=== PATIENT | female | born 1940 | race African-American/Black ===

== ENCOUNTER 2016-08-28 09:26 | Observation (INO) | payer MEDICARE, MEDICAID ==
[~2016-08-28] VITALS: Ht 157.5 cm; Wt 124.9 kg
[~2016-08-28 09:26] MED LIST: AMIT25TA PO; ASPI81TA2 PO; ASPI81TA9 PO; AZIT250T PO; CALC0.25 PO; CEPH-264 PO; Cefpodoxime Proxetil PO; ERGO500012 PO; ESOM40CA PO; FERR-26 PO; FERR325T20 PO; FURO40TA4 PO; FURO80TA3 PO; FURO80TA72 PO; GABA-585 PO; INSU100C SQ; INSU100I13 SQ; INSU100I17 SQ; INSU100V8 SQ; LOSA100T6 PO; MAGN400T22 PO; METO2.5T PO; METO25TA4 PO; METO50TA2 PO; OMEP40CA5 PO; OXYB5TAB33 PO; POTA10CA PO; POTA20TA12 PO; POTA20TA4 PO; POTA20TA82 PO; SIMV10TA3 PO; SOLI5TAB PO
--- NOTE | 2016-08-28 09:40 | PHYS DOC ---
Past Medical History Past Medical History: Asthma, CHF, COPD, Diabetes-Type II, GERD, Hypertension, Other Additional Past Medical Histor: RENAL FAILURE, obesity Past Surgical History: Cholecystectomy, Hysterectomy, Other Additional Past Surgical Histo: EYE,Left rotator cuff Alcohol Use: None Drug Use: None Adult General Chief Complaint Chief Complaint: UPPER EXTREMITY PAIN HPI HPI Patient is a 76 year old female who presents with left arm pain. The patient her left arm started hurting approximately 3 days ago she states nothing makes it better or worse. She denies any chest pain or shortness of breath. According to family she has been feeling weaker over the last several days with lower extremity edema is getting worse. Family is also states that her wounds on her buttocks is now bleeding. The [id number] been putting Desitin cream on it and this morning stated they noted some blood on her sheets when the home health nurse came over. Review of Systems Review of Systems Constitutional: Denies fever or chills [] Eyes: Denies change in visual acuity, redness, or eye pain [] HENT: Denies nasal congestion or sore throat [] Respiratory: Denies cough or shortness of breath [] Cardiovascular: No additional information not addressed in HPI [] GI: Denies abdominal pain, nausea, vomiting, bloody stools or diarrhea [] : Denies dysuria or hematuria [] Musculoskeletal: Denies back pain, positive for left arm pain Integument: Denies rash or skin lesions [] Neurologic: Denies headache, focal weakness or sensory changes [] Endocrine: Denies polyuria or polydipsia [] Allergies Allergies Allergies Coded Allergies Type Severity Reaction Last Updated Verified Iodinated Contrast Media - Oral and Allergy Severe 08/28/16 Yes lisinopril Allergy Severe lip and throat swelling 08/28/16 Yes I S O L A T I O N *CONTACT* Allergy Unknown 09/20/15 Yes Physical Exam Physical Exam Constitutional: Well developed, morbidly obese, well nourished, no acute distress, non-toxic appearance. [] HENT: Normocephalic, atraumatic, bilateral external ears normal, oropharynx moist, no oral exudates, nose normal. [] Eyes: PERRLA, EOMI, conjunctiva normal, no discharge. [] Neck: Normal range of motion, no tenderness, supple, no stridor. [] Cardiovascular:Heart rate regular rhythm, no murmur [] Lungs & Thorax: Bilateral breath sounds clear to auscultation [] Abdomen/ buttocks: Bowel sounds normal, soft, no tenderness, no masses, no pulsatile masses. Desitin in place without any obvious signs of bleeding throughout the gluteal area.[] Skin: Warm, dry, no erythema, no rash. [] Back: No tenderness, no CVA tenderness. [] Extremities: Generalized tender palpation throughout the left arm, with mild swelling, radial pulses 2+ on the left, no cyanosis, no clubbing, ROM intact. Psychologic: Affect normal, judgement normal, mood normal. [] Current Patient Data Vital Signs Vital Signs Date Time Temp Pulse Resp B/P Pulse Ox O2 Delivery O2 Flow Rate FiO2 08/28/16 09:52 99.3 88 20 152/59 96 Room Air 99.3 Lab Values Laboratory Tests Test 08/28/16 10:10 08/28/16 11:05 White Blood Count 9.7x10^3/uL (4.0-11.0) Red Blood Count 3.71x10^6/uL (3.50-5.40) Hemoglobin 11.3g/dL (12.0-15.5) L Hematocrit 34.2% (36.0-47.0) L Mean Corpuscular Volume 92fL (79-100) Mean Corpuscular Hemoglobin 30pg (25-35) Mean Corpuscular Hemoglobin Concent 33g/dL (31-37) Red Cell Distribution Width 15.7% (11.5-14.5) H Platelet Count 187x10^3/uL (140-400) Neutrophils (%) (Auto) 74% (31-73) H Lymphocytes (%) (Auto) 14% (24-48) L Monocytes (%) (Auto) 9% (0-9) Eosinophils (%) (Auto) 2% (0-3) Basophils (%) (Auto) 1% (0-3) Neutrophils # (Auto) 7.2x10^3uL (1.8-7.7) Lymphocytes # (Auto) 1.4x10^3/uL (1.0-4.8) Monocytes # (Auto) 0.9x10^3/uL (0.0-1.1) Eosinophils # (Auto) 0.2x10^3/uL (0.0-0.7) Basophils # (Auto) 0.1x10^3/uL (0.0-0.2) Prothrombin Time 13.7SEC (11.7-14.0) Prothrombin Time INR 1.1 (0.8-1.1) Sodium Level 144mmol/L (136-145) Potassium Level 4.2mmol/L (3.5-5.1) Chloride Level 104mmol/L (98-107) Carbon Dioxide Level 31mmol/L (21-32) Anion Gap 9 (6-14) Blood Urea Nitrogen 40mg/dL (7-20) H Creatinine 2.0mg/dL (0.6-1.0) H Estimated GFR (Cockcroft-Gault) 29.2 Glucose Level 195mg/dL (70-99) H Calcium Level 10.2mg/dL (8.5-10.1) H Magnesium Level 1.9mg/dL (1.8-2.4) Total Bilirubin 0.4mg/dL (0.2-1.0) Direct Bilirubin 0.1mg/dL (0.0-0.2) Aspartate Amino Transferase (AST) 14U/L (15-37) L Alanine Aminotransferase (ALT) 22U/L (14-59) Alkaline Phosphatase 83U/L (46-116) Creatine Kinase 107U/L (26-192) Creatine Kinase MB (Mass) 0.6ng/mL (0.0-3.6) Creatine Kinase MB Relative Index 0.6% (0-4) Troponin I Quantitative < 0.017ng/mL (0.000-0.055) AY-Sey-T-Type Natriuretic Peptide 3723pg/mL (0-449) H Total Protein 7.5g/dL (6.4-8.2) Albumin 3.2g/dL (3.4-5.0) L Thyroid Stimulating Hormone (TSH) 3.175uIU/mL (0.358-3.74) Laboratory Tests 08/28/16 10:10 Laboratory Tests 08/28/16 11:05 EKG EKG EKG shows sinus rhythm with rate of 85 bpm, left axis deviation, no ST elevations appreciated, T-wave inversions in the inferior leads, as interpreted by me. Radiology/Procedures Radiology/Procedures [id number] [place] [address] IMAGING REPORT Signed PATIENT: RUDDY COTE ACCOUNT: [id number] : 1940 LOCATION: ER AGE: 76 SEX: F EXAM STATUS: REG ER ORD. PHYSICIAN: JOSEFINA SANDOVAL MD REASON: chf PROCEDURE: PORTABLE CHEST 1V Portable chest, 08/28/2016: History: Congestive heart failure Comparison is made to a study from 09/21/2015. The heart is mildly enlarged. There is calcific plaquing of the aorta. The pulmonary vascularity is normal. There is mild fissural thickening, scarring or chronic atelectasis in the right parahilar region. No acute infiltrates are seen. There is no evidence of pleural fluid. IMPRESSION: 1. Mild cardiomegaly and aortic atherosclerosis. 2. No acute abnormality is detected. DICTATED and SIGNED BY: RACHAEL VOGT MD DATE: 08/28/16 1153 CC: JOSEFINA SANDOVAL MD; MOLLY FERREIRA MD ~ [facility] [address] [place], [place] [id number] IMAGING REPORT Signed PATIENT: RUDDY COTE ACCOUNT: [id number] : 1940 LOCATION: ER AGE: 76 SEX: F EXAM STATUS: REG ER ORD. PHYSICIAN: JOSEFINA SANDOVAL MD REASON: swelling of left arm PROCEDURE: VENOUS UPPER EXTREMITY LEFT Left upper extremity venous ultrasound, 08/28/2016: History: Left arm swelling Duplex evaluation of the major veins in the left upper extremity was performed including grayscale, color-flow and spectral Doppler analysis. The left internal jugular, subclavian, axillary, brachial, cephalic and basilic veins are all patent. Patent radial and ulnar veins are evident in the forearm. Incidental note is made of a small fluid collection in the soft tissues along the lateral aspect of the left elbow. It measures approximately 2.3 cm. This may be a bursal fluid collection, old hematoma or seroma. Infection cannot be excluded. IMPRESSION: There is no sonographic evidence of deep vein thrombosis in the left upper extremity. DICTATED and SIGNED BY: RACHAEL VOGT MD DATE: 08/28/16 1218 CC: JOSEFINA SANDOVAL MD; MOLLY FERREIRA MD ~ Impressions: Left arm pain Generalized weakness Worsening lower ext edema Course & Med Decision Making Course & Med Decision Making Pertinent Labs and Imaging studies reviewed. (See chart for details) Ultrasound of the left upper extremity did not show any signs of blood clots. Labs do show a slightly worsening BNP, chest x-ray is nonacute. Patient will be admitted for weakness. Patient's in stable condition at this time agreeable plan. Spoke with Dr. Fallon is agreeable to admitting the patient had did already do admission orders underneath Dr. Ferreira, Hafsa ordered PT evaluation in addition to wound care evaluation. Patient's in stable condition at this time with cardiology consultation also being placed with Dr Busby. [place] Disclaimer Dragon Disclaimer This electronic medical record was generated, in whole or in part, using a voice recognition dictation system. Departure Departure Impression: Primary Impression: Weakness Disposition: ADMITTED INPATIENT Admitting Physician: Molly Ferreira Condition: STABLE Referrals: MOLLY FERREIRA MD (PCP) JOSEFINA SANDOVAL MD Aug 28, 2016 09:40
[2016-08-28 10:39] LABS: BASO # 0.1 x10^3/uL (0.0-0.2); BASO % 1 % (0-3); EOS % 2 % (0-3); HEMATOCRIT 34.2 % (36.0-47.0); HEMOGLOBIN 11.3 g/dL (12.0-15.5); LYMPH # 1.4 x10^3/uL (1.0-4.8); LYMPH % 14 % (24-48); MEAN CORPUSCULAR HEMOGLOBIN 30 pg (25-35); MEAN CORPUSCULAR HGB CONC 33 g/dL (31-37); MEAN CORPUSCULAR VOLUME 92 fL (79-100); MONO % 9 % (0-9); NEUT % 74 % (31-73); PLATELET COUNT 187 x10^3/uL (140-400); RED BLOOD COUNT 3.71 x10^6/uL (3.50-5.40); RED CELL DISTRIBUTION WIDTH 15.7 % (11.5-14.5); WHITE BLOOD COUNT 9.7 x10^3/uL (4.0-11.0)
[2016-08-28 11:31] LABS: INR 1.1 (0.8-1.1); PROTHROMBIN TIME PATIENT 13.7 SEC (11.7-14.0)
[2016-08-28 11:32] LABS: CALCIUM 10.2 mg/dL (8.5-10.1); GFR 29.2; POTASSIUM 4.2 mmol/L (3.5-5.1)
[2016-08-28 11:39] LABS: ALBUMIN 3.2 g/dL (3.4-5.0); DIRECT BILIRUBIN 0.1 mg/dL (0.0-0.2); MAGNESIUM 1.9 mg/dL (1.8-2.4); TOTAL BILIRUBIN 0.4 mg/dL (0.2-1.0); TOTAL PROTEIN 7.5 g/dL (6.4-8.2)
[2016-08-28 11:47] LABS: CKMB INDEX 0.6 % (0-4); CKMB MASS 0.6 ng/mL (0.0-3.6)
--- NOTE | 2016-08-28 11:57 | RAD ---
Portable chest, 08/28/2016: History: Congestive heart failure Comparison is made to a study from 09/21/2015. The heart is mildly enlarged. There is calcific plaquing of the aorta. The pulmonary vascularity is normal. There is mild fissural thickening, scarring or chronic atelectasis in the right parahilar region. No acute infiltrates are seen. There is no evidence of pleural fluid. IMPRESSION: 1. Mild cardiomegaly and aortic atherosclerosis. 2. No acute abnormality is detected.
--- NOTE | 2016-08-28 12:23 | RAD ---
Left upper extremity venous ultrasound, 08/28/2016: History: Left arm swelling Duplex evaluation of the major veins in the left upper extremity was performed including grayscale, color-flow and spectral Doppler analysis. The left internal jugular, subclavian, axillary, brachial, cephalic and basilic veins are all patent. Patent radial and ulnar veins are evident in the forearm. Incidental note is made of a small fluid collection in the soft tissues along the lateral aspect of the left elbow. It measures approximately 2.3 cm. This may be a bursal fluid collection, old hematoma or seroma. Infection cannot be excluded. IMPRESSION: There is no sonographic evidence of deep vein thrombosis in the left upper extremity.
--- NOTE | 2016-08-28 13:45 | EKG ---
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
[2016-08-28 16:30] VITALS: BP 127/89
[2016-08-28 16:52] VITALS: BP 129/82
[2016-08-28 16:58] LABS: BILIRUBIN,URINE NEGATIVE (NEG); GLUCOSE,URINE NEGATIVE (NEG); NITRITE,URINE NEGATIVE (NEG)
[2016-08-28 17:07] LABS: BACTERIA,URINE MANY /HPF (0-FEW); PROTEIN,URINE NEGATIVE (NEG-TRACE)
[2016-08-28 17:08] LABS: SQUAMOUS EPITHELIAL CELL,UR OCC /LPF
[2016-08-28] MEDS ORDERED: INSU100C4 SQ (17:39)
[2016-08-28] MEDS ORDERED: POTA20TA4 PO (17:39)
[2016-08-28] MEDS ORDERED: METO25TA4 PO (17:39)
[2016-08-28] MEDS ORDERED: INSU100I13 SQ (17:39)
[2016-08-28] MEDS ORDERED: DEXTROSE 50% 25 GM / 50ML DISP.SYRIN. IV PRN (18:15)
[2016-08-28] MEDS: HYDROCODONE/APAP 5/325MG TABLET. PO PRN (18:43)
[2016-08-28] MEDS: LIDOCAINE (700MG/PATCH) PATCH. TD SCH (18:45)
[2016-08-28] MEDS: INSULIN ASPART 300 UNITS/3 ML INSULN.PEN SQ SCH (18:49)
[2016-08-28 19:00] VITALS: BP 117/61
[2016-08-28 19:29] LABS: C-REACTIVE PROTEIN 48.4 mg/L (0-3.3); URIC ACID 7.8 mg/dL (2.6-6.0)
--- NOTE | 2016-08-28 20:40 | PDOC2 ---
CONSULT Date of Consult Date of Consult DATE: 08/28/16 TIME: 20:28 Reason for Consult Reason for Consult: Left arm pain Referring Physician Referring Physician: Dr. Ponce Identification/Chief Complaint Chief Complaint Left arm pain History of Present Illness Reason for Visit: This patient is a pleasant 76-year-old lady that I have seen in the past. She has a known history of diabetes, hypertension, CHF, renal insufficiency and obesity. The patient is not very active. She has developed at home some ulcerations on her backside that the family has been treated with creams. For about 3 days she has been having left arm pain that has been getting worse and by today he was so severe that she could not stand any 1 to touch the arm between the shoulder to the elbow especially on the medial aspect. The patient was brought to the emergency room where she was seen and evaluated and he was decided to admit her for further workup and treatment. I was asked to see the patient in case that this was cardiac related. At the time that I saw the patient she denies having any chest pains or any dyspnea. She denies having any palpitations. Patient complains that she has been having leg edema. This is chronic for her. Past Medical History Cardiovascular: AFIB, CHF, HTN Pulmonary: Asthma, COPD GI: GERD Renal/: Chronic renal failure Endocrine: Diabetes Past Surgical History Past Surgical History: Cholecystectomy, Hysterectomy Family History Family History: Diabetes, Hypertension Current Problem List Problem List Problems Medical Problems: (1) CHF (congestive heart failure) Status: Acute (2) Weakness Status: Acute Current Medications Current Medications Current Medications Aspirin (Ecotrin) 81 mg DAILY PO ; Start 08/29/16 at 09:00 Ferrous Sulfate (Feosol) 325 mg DAILY PO ; Start 08/29/16 at 09:00 Gabapentin (Neurontin) 100 mg HS PO ; Start 08/28/16 at 21:00 Magnesium Oxide (Magnesium Oxide) 400 mg DAILY PO ; Start 08/29/16 at 09:00 Pantoprazole Sodium (Protonix) 40 mg DAILYAC PO ; Start 08/29/16 at 07:30 Oxybutynin Chloride (Ditropan) 5 mg BID PO ; Start 08/28/16 at 21:00 Lidocaine (Lidoderm) 1 patch DAILY TD Last administered on 08/28/16t 18:45; Start 08/28/16 at 19:00 Acetaminophen/ Hydrocodone Bitart (Lortab 5/325) 1 tab PRN Q4HRS PRN PO PAIN Last administered on 08/28/16t 18:43; Start 08/28/16 at 18:15 Insulin Aspart (Novolog) 0-5 UNITS TIDWMEALS SQ ; Start 08/29/16 at 08:00; Stop 08/29/16 at 08:00; Status DC Dextrose 12.5 gm PRN Q15MIN PRN IV SEE COMMENTS; Start 08/28/16 at 18:15 Insulin Aspart (Novolog) 0-5 UNITS TIDWMEALS SQ Last administered on 08/28/16 18:49; Start 08/28/16 at 19:00 Furosemide (Lasix) 40 mg BID92 PO ; Start 08/29/16 at 09:00 Metoprolol Tartrate (Lopressor) 25 mg BID PO ; Start 08/28/16 at 21:00 Losartan Potassium (Cozaar) 100 mg DAILY PO ; Start 08/29/16 at 09:00 Potassium Chloride (Klor-Con) 20 meq DAILY PO ; Start 08/29/16 at 09:00 Active Scripts Active Mag-Oxide (Magnesium Oxide) 400 Mg Tablet 400 Mg PO DAILY Furosemide 40 Mg Tablet 40 Mg PO BID92 Keflex (Cephalexin) 500 Mg Capsule 1 Cap PO BID Lantus Solostar (Insulin Glargine,Hum.rec.anlog) 100 Unit/1 Ml Insuln.pen 20 Unit SQ QHS Reported Novolog (Insulin Aspart) 100 Unit/1 Ml Cartridge 10 Unit SQ TIDWMEALS Lantus Solostar (Insulin Glargine,Hum.rec.anlog) 100 Unit/1 Ml Insuln.pen 30 Unit SQ DAILY08 Metoprolol Tartrate 25 Mg Tablet 1 Tab PO BID Klor-Con M20 (Potassium Chloride) 20 Meq Tab.er.prt 1 Tab PO DAILY Vitamin D2 (Ergocalciferol (Vitamin D2)) 50,000 Unit Capsule 1 Cap PO WEEKLY Vesicare (Solifenacin Succinate) 5 Mg Tablet 1 Tab PO DAILY Gabapentin 100 Mg Capsule 100 Mg PO HS Simvastatin 10 Mg Tablet 10 Mg PO HS Metoprolol Tartrate 50 Mg Tablet 1 Tab PO BID Aspirin Ec (Aspirin) 81 Mg Tablet.dr 1 Tab PO DAILY Nexium Capsule (Esomeprazole Magnesium) 40 Mg Capsule.dr 40 Mg PO DAILY Amitriptyline Hcl 25 Mg Tablet 25 Mg PO HS Ferrous Sulfate 325 Mg Tablet 325 Mg PO DAILY Losartan Potassium 100 Mg Tablet 100 Mg PO DAILY Allergies Allergies: Coded Allergies: Iodinated Contrast Media - Oral and (Verified Allergy, Severe, 08/28/16) lisinopril (Verified Allergy, Severe, lip and throat swelling, 08/28/16) I S O L A T I O N *CONTACT* (Verified Allergy, Unknown, 09/20/15) mrsa + Physical Exam Physical Exam The patient was in mild distress at the time that I examined her and she was complaining of severe pain to the arm. H EENT pupils are reactive. Oral mucosa is dry. Neck is supple no JVD no tenderness. Lungs no Rales, no wheezing. Heart regular rate and rhythm S1-S2 no S3 no S4. Abdomen protuberant, soft bowel sounds are present. Extremities there is chronic stasis changes present in both legs. The left arm is very tender and I could not examine the arm due to the pain in the area in between the shoulder to just above the elbow especially on the medial aspect of the arm. The radial pulse was present and there is 1+ edema of the fingers. At this time the examination of the buttocks and the perineal area was deferred. Vitals VITALS Vital Signs Date Time Temp Pulse Resp B/P Pulse Ox O2 Delivery O2 Flow Rate FiO2 08/28/16 16:52 98.4 87 20 129/82 99 Room Air 98.4 Labs Labs Laboratory Tests Test 08/28/16 10:10 08/28/16 11:05 08/28/16 16:35 08/28/16 17:20 White Blood Count 9.7x10^3/uL (4.0-11.0) Red Blood Count 3.71x10^6/uL (3.50-5.40) Hemoglobin 11.3g/dL (12.0-15.5) Hematocrit 34.2% (36.0-47.0) Mean Corpuscular Volume 92fL (79-100) Mean Corpuscular Hemoglobin 30pg (25-35) Mean Corpuscular Hemoglobin Concent 33g/dL (31-37) Red Cell Distribution Width 15.7% (11.5-14.5) Platelet Count 187x10^3/uL (140-400) Neutrophils (%) (Auto) 74% (31-73) Lymphocytes (%) (Auto) 14% (24-48) Monocytes (%) (Auto) 9% (0-9) Eosinophils (%) (Auto) 2% (0-3) Basophils (%) (Auto) 1% (0-3) Neutrophils # (Auto) 7.2x10^3uL (1.8-7.7) Lymphocytes # (Auto) 1.4x10^3/uL (1.0-4.8) Monocytes # (Auto) 0.9x10^3/uL (0.0-1.1) Eosinophils # (Auto) 0.2x10^3/uL (0.0-0.7) Basophils # (Auto) 0.1x10^3/uL (0.0-0.2) Prothrombin Time 13.7SEC (11.7-14.0) Prothromb Time International Ratio 1.1 (0.8-1.1) Sodium Level 144mmol/L (136-145) Potassium Level 4.2mmol/L (3.5-5.1) Chloride Level 104mmol/L (98-107) Carbon Dioxide Level 31mmol/L (21-32) Anion Gap 9 (6-14) Blood Urea Nitrogen 40mg/dL (7-20) Creatinine 2.0mg/dL (0.6-1.0) Estimated GFR (Cockcroft-Gault) 29.2 Glucose Level 195mg/dL (70-99) Calcium Level 10.2mg/dL (8.5-10.1) Magnesium Level 1.9mg/dL (1.8-2.4) Total Bilirubin 0.4mg/dL (0.2-1.0) Direct Bilirubin 0.1mg/dL (0.0-0.2) Aspartate Amino Transf (AST/SGOT) 14U/L (15-37) Alanine Aminotransferase (ALT/SGPT) 22U/L (14-59) Alkaline Phosphatase 83U/L (46-116) Creatine Kinase 107U/L (26-192) Creatine Kinase MB (Mass) 0.6ng/mL (0.0-3.6) Creatine Kinase MB Relative Index 0.6% (0-4) Troponin I Quantitative < 0.017ng/mL (0.000-0.055) QR-Gcd-F-Type Natriuretic Peptide 3723pg/mL (0-449) Total Protein 7.5g/dL (6.4-8.2) Albumin 3.2g/dL (3.4-5.0) Thyroid Stimulating Hormone (TSH) 3.175uIU/mL (0.358-3.74) Urine Collection Type Unknown Urine Color Yellow Urine Clarity Clear Urine pH 7.0 Urine Specific [place] 1.010 Urine Protein Negativemg/dL (NEG-TRACE) Urine Glucose (UA) Negativemg/dL (NEG) Urine Ketones (Stick) Negativemg/dL (NEG) Urine Blood Moderate (NEG) Urine Nitrite Negative (NEG) Urine Bilirubin Negative (NEG) Urine Urobilinogen Dipstick 1.0mg/dL (0.2 mg/dL) Urine Leukocyte Esterase Trace (NEG) Urine RBC 6-10/HPF (0-2) Urine WBC 1-4/HPF (0-4) Urine Squamous Epithelial Cells Occ/LPF Urine Bacteria Many/HPF (0-FEW) Glucose (Fingerstick) 173mg/dL (70-99) Test 08/28/16 18:50 Erythrocyte Sedimentation Rate 86 (0-25) Uric Acid 7.8mg/dL (2.6-6.0) C-Reactive Protein, Quantitative 48.4mg/L (0-3.3) Laboratory Tests Test 08/28/16 10:10 08/28/16 11:05 08/28/16 16:35 08/28/16 17:20 White Blood Count 9.7x10^3/uL (4.0-11.0) Red Blood Count 3.71x10^6/uL (3.50-5.40) Hemoglobin 11.3g/dL (12.0-15.5) Hematocrit 34.2% (36.0-47.0) Mean Corpuscular Volume 92fL (79-100) Mean Corpuscular Hemoglobin 30pg (25-35) Mean Corpuscular Hemoglobin Concent 33g/dL (31-37) Red Cell Distribution Width 15.7% (11.5-14.5) Platelet Count 187x10^3/uL (140-400) Neutrophils (%) (Auto) 74% (31-73) Lymphocytes (%) (Auto) 14% (24-48) Monocytes (%) (Auto) 9% (0-9) Eosinophils (%) (Auto) 2% (0-3) Basophils (%) (Auto) 1% (0-3) Neutrophils # (Auto) 7.2x10^3uL (1.8-7.7) Lymphocytes # (Auto) 1.4x10^3/uL (1.0-4.8) Monocytes # (Auto) 0.9x10^3/uL (0.0-1.1) Eosinophils # (Auto) 0.2x10^3/uL (0.0-0.7) Basophils # (Auto) 0.1x10^3/uL (0.0-0.2) Prothrombin Time 13.7SEC (11.7-14.0) Prothromb Time International Ratio 1.1 (0.8-1.1) Sodium Level 144mmol/L (136-145) Potassium Level 4.2mmol/L (3.5-5.1) Chloride Level 104mmol/L (98-107) Carbon Dioxide Level 31mmol/L (21-32) Anion Gap 9 (6-14) Blood Urea Nitrogen 40mg/dL (7-20) Creatinine 2.0mg/dL (0.6-1.0) Estimated GFR (Cockcroft-Gault) 29.2 Glucose Level 195mg/dL (70-99) Calcium Level 10.2mg/dL (8.5-10.1) Magnesium Level 1.9mg/dL (1.8-2.4) Total Bilirubin 0.4mg/dL (0.2-1.0) Direct Bilirubin 0.1mg/dL (0.0-0.2) Aspartate Amino Transf (AST/SGOT) 14U/L (15-37) Alanine Aminotransferase (ALT/SGPT) 22U/L (14-59) Alkaline Phosphatase 83U/L (46-116) Creatine Kinase 107U/L (26-192) Creatine Kinase MB (Mass) 0.6ng/mL (0.0-3.6) Creatine Kinase MB Relative Index 0.6% (0-4) Troponin I Quantitative < 0.017ng/mL (0.000-0.055) QL-Tpc-K-Type Natriuretic Peptide 3723pg/mL (0-449) Total Protein 7.5g/dL (6.4-8.2) Albumin 3.2g/dL (3.4-5.0) Thyroid Stimulating Hormone (TSH) 3.175uIU/mL (0.358-3.74) Urine Collection Type Unknown Urine Color Yellow Urine Clarity Clear Urine pH 7.0 Urine Specific [place] 1.010 Urine Protein Negativemg/dL (NEG-TRACE) Urine Glucose (UA) Negativemg/dL (NEG) Urine Ketones (Stick) Negativemg/dL (NEG) Urine Blood Moderate (NEG) Urine Nitrite Negative (NEG) Urine Bilirubin Negative (NEG) Urine Urobilinogen Dipstick 1.0mg/dL (0.2 mg/dL) Urine Leukocyte Esterase Trace (NEG) Urine RBC 6-10/HPF (0-2) Urine WBC 1-4/HPF (0-4) Urine Squamous Epithelial Cells Occ/LPF Urine Bacteria Many/HPF (0-FEW) Glucose (Fingerstick) 173mg/dL (70-99) Test 08/28/16 18:50 Erythrocyte Sedimentation Rate 86 (0-25) Uric Acid 7.8mg/dL (2.6-6.0) C-Reactive Protein, Quantitative 48.4mg/L (0-3.3) Assessment/Plan Assessment/Plan This patient comes in with severe left arm pain. The findings are not suggestive of a cardiac origin and I would suggest to consider a consult of the orthopedic service. May need to have a vascular evaluation as well. The patient's edema is related to her chronic CHF. I do not believe that her current pain is angina. I will be happy to follow the patient with you. Consider an MRI of the left upper extremity to further evaluate her since she had a negative ultrasound of the area. Thank you very much for asking me to participate in the care of this patient VITO HOWARD MD Aug 28, 2016 20:40
[2016-08-28] MEDS: GABAPENTIN 100 MG CAPSULE. PO SCH (21:07)
[2016-08-28] MEDS: OXYBUTYNIN CHLORIDE 5 MG TABLET PO SCH (21:07)
[2016-08-28] MEDS: METOPROLOL TART IMMED RELEASE 25 MG TABLET PO SCH (21:08)
[2016-08-28 23:04] VITALS: BP 123/92
[2016-08-29 03:29] VITALS: BP 117/63
[2016-08-29 04:19] LABS: BASO % 1 % (0-3); EOS % 1 % (0-3); HEMATOCRIT 32.2 % (36.0-47.0); HEMOGLOBIN 10.2 g/dL (12.0-15.5); LYMPH # 1.3 x10^3/uL (1.0-4.8); LYMPH % 16 % (24-48); MEAN CORPUSCULAR HEMOGLOBIN 30 pg (25-35); MEAN CORPUSCULAR HGB CONC 32 g/dL (31-37); MEAN CORPUSCULAR VOLUME 94 fL (79-100); MONO % 10 % (0-9); NEUT % 73 % (31-73); PLATELET COUNT 154 x10^3/uL (140-400); RED BLOOD COUNT 3.43 x10^6/uL (3.50-5.40); RED CELL DISTRIBUTION WIDTH 15.3 % (11.5-14.5); WHITE BLOOD COUNT 8.5 x10^3/uL (4.0-11.0)
[2016-08-29 04:46] LABS: ALBUMIN 2.9 g/dL (3.4-5.0); ALBUMIN/GLOBULIN RATIO 0.7 (1.0-1.7); CALCIUM 9.8 mg/dL (8.5-10.1); GFR 29.2; TOTAL BILIRUBIN 0.5 mg/dL (0.2-1.0)
[2016-08-29] MEDS: PANTOPRAZOLE 40 MG TABLET. PO SCH (06:41)
[2016-08-29 07:00] VITALS: BP 149/66
--- NOTE | 2016-08-29 07:34 | RAD ---
Portable left elbow, 3 views, 08/28/2016: History: Elbow pain No fracture or dislocation is identified. There is mild to moderate spurring at the elbow joint. There is a suggestion of a small joint effusion. IMPRESSION: 1. Degenerative change. 2. Probable small joint effusion. 3. No acute bony abnormality is detected.
[2016-08-29] MEDS ORDERED: INSULIN ASPART 300 UNITS/3 ML INSULN.PEN SQ SCH (08:00)
[2016-08-29] MEDS: INSULIN ASPART 300 UNITS/3 ML INSULN.PEN SQ SCH ×5 (08:34→17:58)
[2016-08-29] MEDS: ASPIRIN ENTERIC COATED 81 MG TABLET.DR. PO SCH (08:35)
[2016-08-29] MEDS: FUROSEMIDE 40 MG TABLET PO SCH ×2 (08:35→14:28)
[2016-08-29] MEDS: OXYBUTYNIN CHLORIDE 5 MG TABLET PO SCH ×2 (08:35→20:59)
[2016-08-29] MEDS: LOSARTAN POTASSIUM 50 MG TABLET. PO SCH (08:35)
[2016-08-29] MEDS: FERROUS SULFATE 325 MG TABLET PO SCH (08:35)
[2016-08-29] MEDS: METOPROLOL TART IMMED RELEASE 25 MG TABLET PO SCH ×2 (08:36→20:54)
[2016-08-29] MEDS: HYDROCODONE/APAP 5/325MG TABLET. PO PRN ×2 (08:37→12:47)
[2016-08-29] MEDS: MAGNESIUM OXIDE 400 MG TABLET PO SCH (08:37)
[2016-08-29] MEDS: LIDOCAINE (700MG/PATCH) PATCH. TD SCH (08:40)
[2016-08-29] MEDS: POTASSIUM CHLORIDE 20 MEQ TABLET.ER. PO SCH (08:41)
--- NOTE | 2016-08-29 09:56 | PDOC ---
PROGRESS NOTES Subjective Subjective Pt A&Ox3, cooperative. Sitting up at bedside. Denies having chest pain. States she does get SOB with exertion, but not lying still. Still complains of left arm pain. No new complaints at this time. Objective Objective Vital Signs Date Time Temp Pulse Resp B/P Pulse Ox O2 Delivery O2 Flow Rate FiO2 08/29/16 08:36 86 149/66 08/29/16 08:00 Room Air 08/29/16 07:00 98.3 20 94 98.3 Intake and Output 08/29/16 07:00 Intake Total 720 ml Output Total 600 ml Balance 120 ml Intake Oral 720 ml Output Urine Total 600 ml # Voids 4 Physical Exam Abdomen: Normal bowel sounds, Soft, No tenderness, No hepatosplenomegaly, No masses Heart: Regular rate, Normal S1, Normal S2, No murmurs, Gallops Extremities: Other (1+ edema bilat LE) General: Alert, Oriented X3, Cooperative, No acute distress Lungs: Clear to auscultation, Normal air movement Assessment Assessment Problems Medical Problems: (1) CHF (congestive heart failure) Status: Acute (2) Weakness Status: Acute Plan Plan of Care CHF Stable at this time Continue with current plan of care Comment Review of Relevant I have reviewed the following items terry (where applicable) has been applied. Labs Laboratory Tests Test 08/28/16 10:10 08/28/16 11:05 08/28/16 16:35 08/28/16 17:20 White Blood Count 9.7x10^3/uL (4.0-11.0) Red Blood Count 3.71x10^6/uL (3.50-5.40) Hemoglobin 11.3g/dL (12.0-15.5) Hematocrit 34.2% (36.0-47.0) Mean Corpuscular Volume 92fL (79-100) Mean Corpuscular Hemoglobin 30pg (25-35) Mean Corpuscular Hemoglobin Concent 33g/dL (31-37) Red Cell Distribution Width 15.7% (11.5-14.5) Platelet Count 187x10^3/uL (140-400) Neutrophils (%) (Auto) 74% (31-73) Lymphocytes (%) (Auto) 14% (24-48) Monocytes (%) (Auto) 9% (0-9) Eosinophils (%) (Auto) 2% (0-3) Basophils (%) (Auto) 1% (0-3) Neutrophils # (Auto) 7.2x10^3uL (1.8-7.7) Lymphocytes # (Auto) 1.4x10^3/uL (1.0-4.8) Monocytes # (Auto) 0.9x10^3/uL (0.0-1.1) Eosinophils # (Auto) 0.2x10^3/uL (0.0-0.7) Basophils # (Auto) 0.1x10^3/uL (0.0-0.2) Prothrombin Time 13.7SEC (11.7-14.0) Prothromb Time International Ratio 1.1 (0.8-1.1) Sodium Level 144mmol/L (136-145) Potassium Level 4.2mmol/L (3.5-5.1) Chloride Level 104mmol/L (98-107) Carbon Dioxide Level 31mmol/L (21-32) Anion Gap 9 (6-14) Blood Urea Nitrogen 40mg/dL (7-20) Creatinine 2.0mg/dL (0.6-1.0) Estimated GFR (Cockcroft-Gault) 29.2 Glucose Level 195mg/dL (70-99) Calcium Level 10.2mg/dL (8.5-10.1) Magnesium Level 1.9mg/dL (1.8-2.4) Total Bilirubin 0.4mg/dL (0.2-1.0) Direct Bilirubin 0.1mg/dL (0.0-0.2) Aspartate Amino Transf (AST/SGOT) 14U/L (15-37) Alanine Aminotransferase (ALT/SGPT) 22U/L (14-59) Alkaline Phosphatase 83U/L (46-116) Creatine Kinase 107U/L (26-192) Creatine Kinase MB (Mass) 0.6ng/mL (0.0-3.6) Creatine Kinase MB Relative Index 0.6% (0-4) Troponin I Quantitative < 0.017ng/mL (0.000-0.055) WC-Onm-V-Type Natriuretic Peptide 3723pg/mL (0-449) Total Protein 7.5g/dL (6.4-8.2) Albumin 3.2g/dL (3.4-5.0) Thyroid Stimulating Hormone (TSH) 3.175uIU/mL (0.358-3.74) Urine Collection Type Unknown Urine Color Yellow Urine Clarity Clear Urine pH 7.0 Urine Specific [place] 1.010 Urine Protein Negativemg/dL (NEG-TRACE) Urine Glucose (UA) Negativemg/dL (NEG) Urine Ketones (Stick) Negativemg/dL (NEG) Urine Blood Moderate (NEG) Urine Nitrite Negative (NEG) Urine Bilirubin Negative (NEG) Urine Urobilinogen Dipstick 1.0mg/dL (0.2 mg/dL) Urine Leukocyte Esterase Trace (NEG) Urine RBC 6-10/HPF (0-2) Urine WBC 1-4/HPF (0-4) Urine Squamous Epithelial Cells Occ/LPF Urine Bacteria Many/HPF (0-FEW) Glucose (Fingerstick) 173mg/dL (70-99) Test 08/28/16 18:50 08/28/16 20:30 08/29/16 03:20 08/29/16 08:02 Erythrocyte Sedimentation Rate 86 (0-25) Uric Acid 7.8mg/dL (2.6-6.0) C-Reactive Protein, Quantitative 48.4mg/L (0-3.3) Troponin I Quantitative 0.018ng/mL (0.000-0.055) 0.018ng/mL (0.000-0.055) White Blood Count 8.5x10^3/uL (4.0-11.0) Red Blood Count 3.43x10^6/uL (3.50-5.40) Hemoglobin 10.2g/dL (12.0-15.5) Hematocrit 32.2% (36.0-47.0) Mean Corpuscular Volume 94fL (79-100) Mean Corpuscular Hemoglobin 30pg (25-35) Mean Corpuscular Hemoglobin Concent 32g/dL (31-37) Red Cell Distribution Width 15.3% (11.5-14.5) Platelet Count 154x10^3/uL (140-400) Neutrophils (%) (Auto) 73% (31-73) Lymphocytes (%) (Auto) 16% (24-48) Monocytes (%) (Auto) 10% (0-9) Eosinophils (%) (Auto) 1% (0-3) Basophils (%) (Auto) 1% (0-3) Neutrophils # (Auto) 6.2x10^3uL (1.8-7.7) Lymphocytes # (Auto) 1.3x10^3/uL (1.0-4.8) Monocytes # (Auto) 0.8x10^3/uL (0.0-1.1) Eosinophils # (Auto) 0.1x10^3/uL (0.0-0.7) Basophils # (Auto) 0.0x10^3/uL (0.0-0.2) Sodium Level 143mmol/L (136-145) Potassium Level 4.0mmol/L (3.5-5.1) Chloride Level 104mmol/L (98-107) Carbon Dioxide Level 32mmol/L (21-32) Anion Gap 7 (6-14) Blood Urea Nitrogen 39mg/dL (7-20) Creatinine 2.0mg/dL (0.6-1.0) Estimated GFR (Cockcroft-Gault) 29.2 BUN/Creatinine Ratio 20 (6-20) Glucose Level 161mg/dL (70-99) Calcium Level 9.8mg/dL (8.5-10.1) Total Bilirubin 0.5mg/dL (0.2-1.0) Aspartate Amino Transf (AST/SGOT) 13U/L (15-37) Alanine Aminotransferase (ALT/SGPT) 20U/L (14-59) Alkaline Phosphatase 77U/L (46-116) Total Protein 7.0g/dL (6.4-8.2) Albumin 2.9g/dL (3.4-5.0) Albumin/Globulin Ratio 0.7 (1.0-1.7) Glucose (Fingerstick) 147mg/dL (70-99) Laboratory Tests Test 08/28/16 10:10 08/28/16 11:05 08/28/16 16:35 08/28/16 17:20 White Blood Count 9.7x10^3/uL (4.0-11.0) Red Blood Count 3.71x10^6/uL (3.50-5.40) Hemoglobin 11.3g/dL (12.0-15.5) Hematocrit 34.2% (36.0-47.0) Mean Corpuscular Volume 92fL (79-100) Mean Corpuscular Hemoglobin 30pg (25-35) Mean Corpuscular Hemoglobin Concent 33g/dL (31-37) Red Cell Distribution Width 15.7% (11.5-14.5) Platelet Count 187x10^3/uL (140-400) Neutrophils (%) (Auto) 74% (31-73) Lymphocytes (%) (Auto) 14% (24-48) Monocytes (%) (Auto) 9% (0-9) Eosinophils (%) (Auto) 2% (0-3) Basophils (%) (Auto) 1% (0-3) Neutrophils # (Auto) 7.2x10^3uL (1.8-7.7) Lymphocytes # (Auto) 1.4x10^3/uL (1.0-4.8) Monocytes # (Auto) 0.9x10^3/uL (0.0-1.1) Eosinophils # (Auto) 0.2x10^3/uL (0.0-0.7) Basophils # (Auto) 0.1x10^3/uL (0.0-0.2) Prothrombin Time 13.7SEC (11.7-14.0) Prothromb Time International Ratio 1.1 (0.8-1.1) Sodium Level 144mmol/L (136-145) Potassium Level 4.2mmol/L (3.5-5.1) Chloride Level 104mmol/L (98-107) Carbon Dioxide Level 31mmol/L (21-32) Anion Gap 9 (6-14) Blood Urea Nitrogen 40mg/dL (7-20) Creatinine 2.0mg/dL (0.6-1.0) Estimated GFR (Cockcroft-Gault) 29.2 Glucose Level 195mg/dL (70-99) Calcium Level 10.2mg/dL (8.5-10.1) Magnesium Level 1.9mg/dL (1.8-2.4) Total Bilirubin 0.4mg/dL (0.2-1.0) Direct Bilirubin 0.1mg/dL (0.0-0.2) Aspartate Amino Transf (AST/SGOT) 14U/L (15-37) Alanine Aminotransferase (ALT/SGPT) 22U/L (14-59) Alkaline Phosphatase 83U/L (46-116) Creatine Kinase 107U/L (26-192) Creatine Kinase MB (Mass) 0.6ng/mL (0.0-3.6) Creatine Kinase MB Relative Index 0.6% (0-4) Troponin I Quantitative < 0.017ng/mL (0.000-0.055) US-Xar-H-Type Natriuretic Peptide 3723pg/mL (0-449) Total Protein 7.5g/dL (6.4-8.2) Albumin 3.2g/dL (3.4-5.0) Thyroid Stimulating Hormone (TSH) 3.175uIU/mL (0.358-3.74) Urine Collection Type Unknown Urine Color Yellow Urine Clarity Clear Urine pH 7.0 Urine Specific [place] 1.010 Urine Protein Negativemg/dL (NEG-TRACE) Urine Glucose (UA) Negativemg/dL (NEG) Urine Ketones (Stick) Negativemg/dL (NEG) Urine Blood Moderate (NEG) Urine Nitrite Negative (NEG) Urine Bilirubin Negative (NEG) Urine Urobilinogen Dipstick 1.0mg/dL (0.2 mg/dL) Urine Leukocyte Esterase Trace (NEG) Urine RBC 6-10/HPF (0-2) Urine WBC 1-4/HPF (0-4) Urine Squamous Epithelial Cells Occ/LPF Urine Bacteria Many/HPF (0-FEW) Glucose (Fingerstick) 173mg/dL (70-99) Test 08/28/16 18:50 08/28/16 20:30 08/29/16 03:20 08/29/16 08:02 Erythrocyte Sedimentation Rate 86 (0-25) Uric Acid 7.8mg/dL (2.6-6.0) C-Reactive Protein, Quantitative 48.4mg/L (0-3.3) Troponin I Quantitative 0.018ng/mL (0.000-0.055) 0.018ng/mL (0.000-0.055) White Blood Count 8.5x10^3/uL (4.0-11.0) Red Blood Count 3.43x10^6/uL (3.50-5.40) Hemoglobin 10.2g/dL (12.0-15.5) Hematocrit 32.2% (36.0-47.0) Mean Corpuscular Volume 94fL (79-100) Mean Corpuscular Hemoglobin 30pg (25-35) Mean Corpuscular Hemoglobin Concent 32g/dL (31-37) Red Cell Distribution Width 15.3% (11.5-14.5) Platelet Count 154x10^3/uL (140-400) Neutrophils (%) (Auto) 73% (31-73) Lymphocytes (%) (Auto) 16% (24-48) Monocytes (%) (Auto) 10% (0-9) Eosinophils (%) (Auto) 1% (0-3) Basophils (%) (Auto) 1% (0-3) Neutrophils # (Auto) 6.2x10^3uL (1.8-7.7) Lymphocytes # (Auto) 1.3x10^3/uL (1.0-4.8) Monocytes # (Auto) 0.8x10^3/uL (0.0-1.1) Eosinophils # (Auto) 0.1x10^3/uL (0.0-0.7) Basophils # (Auto) 0.0x10^3/uL (0.0-0.2) Sodium Level 143mmol/L (136-145) Potassium Level 4.0mmol/L (3.5-5.1) Chloride Level 104mmol/L (98-107) Carbon Dioxide Level 32mmol/L (21-32) Anion Gap 7 (6-14) Blood Urea Nitrogen 39mg/dL (7-20) Creatinine 2.0mg/dL (0.6-1.0) Estimated GFR (Cockcroft-Gault) 29.2 BUN/Creatinine Ratio 20 (6-20) Glucose Level 161mg/dL (70-99) Calcium Level 9.8mg/dL (8.5-10.1) Total Bilirubin 0.5mg/dL (0.2-1.0) Aspartate Amino Transf (AST/SGOT) 13U/L (15-37) Alanine Aminotransferase (ALT/SGPT) 20U/L (14-59) Alkaline Phosphatase 77U/L (46-116) Total Protein 7.0g/dL (6.4-8.2) Albumin 2.9g/dL (3.4-5.0) Albumin/Globulin Ratio 0.7 (1.0-1.7) Glucose (Fingerstick) 147mg/dL (70-99) Medications Current Medications Aspirin (Ecotrin) 81 mg DAILY PO Last administered on 08/29/16 08:35; Start at 09:00 Ferrous Sulfate (Feosol) 325 mg DAILY PO Last administered on 08/29/16 08:35; Start 08/29/16 at 09:00 Gabapentin (Neurontin) 100 mg HS PO Last administered on 08/28/16 21:07; Start 08/28/16 at 21:00 Magnesium Oxide (Magnesium Oxide) 400 mg DAILY PO Last administered on 08:37; Start 08/29/16 at 09:00 Pantoprazole Sodium (Protonix) 40 mg DAILYAC PO Last administered on 08/29/16 06:41; Start 08/29/16 at 07:30 Oxybutynin Chloride (Ditropan) 5 mg BID PO Last administered on 08/29/16 08:35 ; Start 08/28/16 at 21:00 Lidocaine (Lidoderm) 1 patch DAILY TD Last administered on 08/29/16 08:40; Start 08/28/16 at 19:00 Acetaminophen/ Hydrocodone Bitart (Lortab 5/325) 1 tab PRN Q4HRS PRN PO PAIN Last administered on 08/29/16 08:37; Start 08/28/16 at 18:15 Insulin Aspart (Novolog) 0-5 UNITS TIDWMEALS SQ ; Start 08/29/16 at 08:00; Stop 08/29/16 at 08:00; Status DC Dextrose 12.5 gm PRN Q15MIN PRN IV SEE COMMENTS; Start 08/28/16 at 18:15 Insulin Aspart (Novolog) 0-5 UNITS TIDWMEALS SQ Last administered on 08/28/16 18:49; Start 08/28/16 at 19:00 Furosemide (Lasix) 40 mg [id number] PO Last administered on 08/29/16 08:35; Start 08/29/16 at 09:00 Metoprolol Tartrate (Lopressor) 25 mg BID PO Last administered on 08/29/16 08: 36; Start 08/28/16 at 21:00 Losartan Potassium (Cozaar) 100 mg DAILY PO Last administered on 08/29/16 08: 35; Start 08/29/16 at 09:00 Potassium Chloride (Klor-Con) 20 meq DAILY PO Last administered on 08/29/16 08 :41; Start 08/29/16 at 09:00 Active Scripts Active Mag-Oxide (Magnesium Oxide) 400 Mg Tablet 400 Mg PO DAILY Furosemide 40 Mg Tablet 40 Mg PO [id number] Keflex (Cephalexin) 500 Mg Capsule 1 Cap PO BID Lantus Solostar (Insulin Glargine,Hum.rec.anlog) 100 Unit/1 Ml Insuln.pen 20 Unit SQ QHS Reported Novolog (Insulin Aspart) 100 Unit/1 Ml Cartridge 10 Unit SQ TIDWMEALS Lantus Solostar (Insulin Glargine,Hum.rec.anlog) 100 Unit/1 Ml Insuln.pen 30 Unit SQ DAILY08 Metoprolol Tartrate 25 Mg Tablet 1 Tab PO BID Klor-Con M20 (Potassium Chloride) 20 Meq Tab.er.prt 1 Tab PO DAILY Vitamin D2 (Ergocalciferol (Vitamin D2)) 50,000 Unit Capsule 1 Cap PO WEEKLY Vesicare (Solifenacin Succinate) 5 Mg Tablet 1 Tab PO DAILY Gabapentin 100 Mg Capsule 100 Mg PO HS Simvastatin 10 Mg Tablet 10 Mg PO HS Metoprolol Tartrate 50 Mg Tablet 1 Tab PO BID Aspirin Ec (Aspirin) 81 Mg Tablet.dr 1 Tab PO DAILY Nexium Capsule (Esomeprazole Magnesium) 40 Mg Capsule.dr 40 Mg PO DAILY Amitriptyline Hcl 25 Mg Tablet 25 Mg PO HS Ferrous Sulfate 325 Mg Tablet 325 Mg PO DAILY Losartan Potassium 100 Mg Tablet 100 Mg PO DAILY Vitals/I & O Vital Sign - Last 24 Hours 08/28/16 08/28/16 08/28/16 08/28/16 10:30 11:30 12:30 13:30 Pulse 84 88 82 84 Resp B/P 165/88 174/88 162/79 176/70 Pulse Ox 96 96 97 97 O2 Delivery Room Air Room Air Room Air Room Air 08/28/16 08/28/16 08/28/16 08/28/16 14:30 15:30 16:30 16:30 Temp 98.4 98.4 Pulse 86 86 89 Resp B/P 177/92 168/88 127/89 Pulse Ox 97 97 97 O2 Delivery Room Air Room Air Room Air Room Air 08/28/16 08/28/16 08/28/16 08/28/16 16:52 19:00 19:45 21:08 Temp 98.4 100.8 98.4 100.8 Pulse 87 102 87 Resp 20 20 20 B/P 129/82 117/61 129/82 Pulse Ox 99 98 O2 Delivery Room Air Room Air 08/28/16 08/29/16 08/29/16 08/29/16 23:04 03:29 07:00 08:00 Temp 98.6 96.7 98.3 98.6 96.7 98.3 Pulse 60 60 86 Resp 18 20 20 B/P 123/92 117/63 149/66 Pulse Ox 96 94 94 O2 Delivery Room Air Room Air Room Air Room Air 08/29/16 08/29/16 08:35 08:36 Pulse 86 86 B/P 149/66 149/66 Intake and Output 08/28/16 08/28/16 08/29/16 15:00 23:00 07:00 Intake Total 720 ml Output Total 600 ml Balance 120 ml VITO HOWARD MD Aug 29, 2016 09:56
--- NOTE | 2016-08-29 10:41 | PDOC2 ---
CONSULT Date of Consult Date of Consult DATE: 08/29/16 Reason for Consult Reason for Consult: left elbow pain and swelling Referring Physician Referring Physician: Dr. Elias Identification/Chief Complaint Chief Complaint left elbow pain Source Source: Chart review, Patient History of Present Illness Reason for Visit: Ms. Iniguez is a 76 year old female patient who presented to the emergency department and was admitted with left elbow pain. She says the pain started about four days ago. She denies recent falls. She does not remember any injury or trauma to the elbow. The elbow is painful to the touch and with motion. She does have a lidocaine patch on the elbow, which helps some. She says her hands are swollen as well. She seems to get short of breath with minimal exertion. Past Medical History Cardiovascular: AFIB, CHF, HTN Pulmonary: Asthma, COPD GI: GERD Renal/: Chronic renal failure Endocrine: Diabetes Past Surgical History Past Surgical History: Cholecystectomy, Hysterectomy, Other (eye, left rotator cuff repair) Family History Family History: Diabetes, Hypertension Social History No ALCOHOL: none Drugs: None Lives: with Family Current Problem List Problem List Problems Medical Problems: (1) CHF (congestive heart failure) Status: Acute (2) Weakness Status: Acute Current Medications Current Medications Current Medications Aspirin (Ecotrin) 81 mg DAILY PO Last administered on 08/29/16 08:35; Start at 09:00 Ferrous Sulfate (Feosol) 325 mg DAILY PO Last administered on 08/29/16 08:35; Start 08/29/16 at 09:00 Gabapentin (Neurontin) 100 mg HS PO Last administered on 08/28/16 21:07; Start 08/28/16 at 21:00 Magnesium Oxide (Magnesium Oxide) 400 mg DAILY PO Last administered on 08:37; Start 08/29/16 at 09:00 Pantoprazole Sodium (Protonix) 40 mg DAILYAC PO Last administered on 08/29/16 06:41; Start 08/29/16 at 07:30 Oxybutynin Chloride (Ditropan) 5 mg BID PO Last administered on 08/29/16 08:35 ; Start 08/28/16 at 21:00 Lidocaine (Lidoderm) 1 patch DAILY TD Last administered on 08/29/16 08:40; Start 08/28/16 at 19:00 Acetaminophen/ Hydrocodone Bitart (Lortab 5/325) 1 tab PRN Q4HRS PRN PO PAIN Last administered on 08/29/16 08:37; Start 08/28/16 at 18:15 Insulin Aspart (Novolog) 0-5 UNITS TIDWMEALS SQ ; Start 08/29/16 at 08:00; Stop 08/29/16 at 08:00; Status DC Dextrose 12.5 gm PRN Q15MIN PRN IV SEE COMMENTS; Start 08/28/16 at 18:15 Insulin Aspart (Novolog) 0-5 UNITS TIDWMEALS SQ Last administered on 08/28/16 18:49; Start 08/28/16 at 19:00 Furosemide (Lasix) 40 mg [id number] PO Last administered on 08/29/16 08:35; Start 08/29/16 at 09:00 Metoprolol Tartrate (Lopressor) 25 mg BID PO Last administered on 08/29/16 08: 36; Start 08/28/16 at 21:00 Losartan Potassium (Cozaar) 100 mg DAILY PO Last administered on 08/29/16 08: 35; Start 08/29/16 at 09:00 Potassium Chloride (Klor-Con) 20 meq DAILY PO Last administered on 08/29/16 08 :41; Start 08/29/16 at 09:00 Active Scripts Active Mag-Oxide (Magnesium Oxide) 400 Mg Tablet 400 Mg PO DAILY Furosemide 40 Mg Tablet 40 Mg PO [id number] Keflex (Cephalexin) 500 Mg Capsule 1 Cap PO BID Lantus Solostar (Insulin Glargine,Hum.rec.anlog) 100 Unit/1 Ml Insuln.pen 20 Unit SQ QHS Reported Novolog (Insulin Aspart) 100 Unit/1 Ml Cartridge 10 Unit SQ TIDWMEALS Lantus Solostar (Insulin Glargine,Hum.rec.anlog) 100 Unit/1 Ml Insuln.pen 30 Unit SQ DAILY08 Metoprolol Tartrate 25 Mg Tablet 1 Tab PO BID Klor-Con M20 (Potassium Chloride) 20 Meq Tab.er.prt 1 Tab PO DAILY Vitamin D2 (Ergocalciferol (Vitamin D2)) 50,000 Unit Capsule 1 Cap PO WEEKLY Vesicare (Solifenacin Succinate) 5 Mg Tablet 1 Tab PO DAILY Gabapentin 100 Mg Capsule 100 Mg PO HS Simvastatin 10 Mg Tablet 10 Mg PO HS Metoprolol Tartrate 50 Mg Tablet 1 Tab PO BID Aspirin Ec (Aspirin) 81 Mg Tablet.dr 1 Tab PO DAILY Nexium Capsule (Esomeprazole Magnesium) 40 Mg Capsule.dr 40 Mg PO DAILY Amitriptyline Hcl 25 Mg Tablet 25 Mg PO HS Ferrous Sulfate 325 Mg Tablet 325 Mg PO DAILY Losartan Potassium 100 Mg Tablet 100 Mg PO DAILY Allergies Allergies: Coded Allergies: Iodinated Contrast Media - Oral and (Verified Allergy, Severe, 08/28/16) lisinopril (Verified Allergy, Severe, lip and throat swelling, 08/28/16) I S O L A T I O N *CONTACT* (Verified Allergy, Unknown, 09/20/15) mrsa + ROS General: No: Chills, Night Sweats Hematological and Lymphatic: No: Blood Clots Respiratory: YES: SOB with excertion Cardiovascular: yes Edema, No Chest Pain Gastrointestinal: No Nausea, No Vomiting Musculoskeletal: Yes Pain In: (left elbow) Physical Exam General: Alert, Oriented X3, Cooperative, No acute distress HEENT: Atraumatic, EOMI Lungs: Normal air movement, Other (She seems get short of breath with minimal exertion) Heart: Regular rate Abdomen: Soft Extremities: No clubbing, No cyanosis, Normal pulses, Other (BLE edema. Fingers are mildly swollen as well.) Skin: No rashes, No breakdown, No significant lesion Neuro: Normal speech, Normal tone, Sensation intact MUSCULOSKELETAL: Other (Upon inspection of the left elbow and surrounding area , there is no erythema, ecchymosis, or lesion identified. The skin is not warm to the touch. There is an area of swelling laterally, that feels like a hematoma. There swelling is not fluctuant and does not seem to be anything that could be aspirated. There is tenderness to palpation over the lateral swelling. The elbow shows normal range of motion. There is pain with wrist extension. She cannot quite make a fist with either hand and relates this to her swelling. Radial, median, and ulnar nerve motor function intact. No clubbing, cyanosis, or pitting. Radial pulse intact. Light touch sensation intact. ) Vitals VITALS Vital Signs Date Time Temp Pulse Resp B/P Pulse Ox O2 Delivery O2 Flow Rate FiO2 08/29/16 08:36 86 149/66 08/29/16 08:00 Room Air 08/29/16 07:00 98.3 20 94 98.3 Labs Labs Laboratory Tests Test 08/28/16 10:10 08/28/16 11:05 08/28/16 16:35 08/28/16 17:20 White Blood Count 9.7x10^3/uL (4.0-11.0) Red Blood Count 3.71x10^6/uL (3.50-5.40) Hemoglobin 11.3g/dL (12.0-15.5) Hematocrit 34.2% (36.0-47.0) Mean Corpuscular Volume 92fL (79-100) Mean Corpuscular Hemoglobin 30pg (25-35) Mean Corpuscular Hemoglobin Concent 33g/dL (31-37) Red Cell Distribution Width 15.7% (11.5-14.5) Platelet Count 187x10^3/uL (140-400) Neutrophils (%) (Auto) 74% (31-73) Lymphocytes (%) (Auto) 14% (24-48) Monocytes (%) (Auto) 9% (0-9) Eosinophils (%) (Auto) 2% (0-3) Basophils (%) (Auto) 1% (0-3) Neutrophils # (Auto) 7.2x10^3uL (1.8-7.7) Lymphocytes # (Auto) 1.4x10^3/uL (1.0-4.8) Monocytes # (Auto) 0.9x10^3/uL (0.0-1.1) Eosinophils # (Auto) 0.2x10^3/uL (0.0-0.7) Basophils # (Auto) 0.1x10^3/uL (0.0-0.2) Prothrombin Time 13.7SEC (11.7-14.0) Prothromb Time International Ratio 1.1 (0.8-1.1) Sodium Level 144mmol/L (136-145) Potassium Level 4.2mmol/L (3.5-5.1) Chloride Level 104mmol/L (98-107) Carbon Dioxide Level 31mmol/L (21-32) Anion Gap 9 (6-14) Blood Urea Nitrogen 40mg/dL (7-20) Creatinine 2.0mg/dL (0.6-1.0) Estimated GFR (Cockcroft-Gault) 29.2 Glucose Level 195mg/dL (70-99) Calcium Level 10.2mg/dL (8.5-10.1) Magnesium Level 1.9mg/dL (1.8-2.4) Total Bilirubin 0.4mg/dL (0.2-1.0) Direct Bilirubin 0.1mg/dL (0.0-0.2) Aspartate Amino Transf (AST/SGOT) 14U/L (15-37) Alanine Aminotransferase (ALT/SGPT) 22U/L (14-59) Alkaline Phosphatase 83U/L (46-116) Creatine Kinase 107U/L (26-192) Creatine Kinase MB (Mass) 0.6ng/mL (0.0-3.6) Creatine Kinase MB Relative Index 0.6% (0-4) Troponin I Quantitative < 0.017ng/mL (0.000-0.055) DY-Aux-V-Type Natriuretic Peptide 3723pg/mL (0-449) Total Protein 7.5g/dL (6.4-8.2) Albumin 3.2g/dL (3.4-5.0) Thyroid Stimulating Hormone (TSH) 3.175uIU/mL (0.358-3.74) Urine Collection Type Unknown Urine Color Yellow Urine Clarity Clear Urine pH 7.0 Urine Specific [place] 1.010 Urine Protein Negativemg/dL (NEG-TRACE) Urine Glucose (UA) Negativemg/dL (NEG) Urine Ketones (Stick) Negativemg/dL (NEG) Urine Blood Moderate (NEG) Urine Nitrite Negative (NEG) Urine Bilirubin Negative (NEG) Urine Urobilinogen Dipstick 1.0mg/dL (0.2 mg/dL) Urine Leukocyte Esterase Trace (NEG) Urine RBC 6-10/HPF (0-2) Urine WBC 1-4/HPF (0-4) Urine Squamous Epithelial Cells Occ/LPF Urine Bacteria Many/HPF (0-FEW) Glucose (Fingerstick) 173mg/dL (70-99) Test 08/28/16 18:50 08/28/16 20:30 08/29/16 03:20 08/29/16 08:02 Erythrocyte Sedimentation Rate 86 (0-25) Uric Acid 7.8mg/dL (2.6-6.0) C-Reactive Protein, Quantitative 48.4mg/L (0-3.3) Troponin I Quantitative 0.018ng/mL (0.000-0.055) 0.018ng/mL (0.000-0.055) White Blood Count 8.5x10^3/uL (4.0-11.0) Red Blood Count 3.43x10^6/uL (3.50-5.40) Hemoglobin 10.2g/dL (12.0-15.5) Hematocrit 32.2% (36.0-47.0) Mean Corpuscular Volume 94fL (79-100) Mean Corpuscular Hemoglobin 30pg (25-35) Mean Corpuscular Hemoglobin Concent 32g/dL (31-37) Red Cell Distribution Width 15.3% (11.5-14.5) Platelet Count 154x10^3/uL (140-400) Neutrophils (%) (Auto) 73% (31-73) Lymphocytes (%) (Auto) 16% (24-48) Monocytes (%) (Auto) 10% (0-9) Eosinophils (%) (Auto) 1% (0-3) Basophils (%) (Auto) 1% (0-3) Neutrophils # (Auto) 6.2x10^3uL (1.8-7.7) Lymphocytes # (Auto) 1.3x10^3/uL (1.0-4.8) Monocytes # (Auto) 0.8x10^3/uL (0.0-1.1) Eosinophils # (Auto) 0.1x10^3/uL (0.0-0.7) Basophils # (Auto) 0.0x10^3/uL (0.0-0.2) Sodium Level 143mmol/L (136-145) Potassium Level 4.0mmol/L (3.5-5.1) Chloride Level 104mmol/L (98-107) Carbon Dioxide Level 32mmol/L (21-32) Anion Gap 7 (6-14) Blood Urea Nitrogen 39mg/dL (7-20) Creatinine 2.0mg/dL (0.6-1.0) Estimated GFR (Cockcroft-Gault) 29.2 BUN/Creatinine Ratio 20 (6-20) Glucose Level 161mg/dL (70-99) Calcium Level 9.8mg/dL (8.5-10.1) Total Bilirubin 0.5mg/dL (0.2-1.0) Aspartate Amino Transf (AST/SGOT) 13U/L (15-37) Alanine Aminotransferase (ALT/SGPT) 20U/L (14-59) Alkaline Phosphatase 77U/L (46-116) Total Protein 7.0g/dL (6.4-8.2) Albumin 2.9g/dL (3.4-5.0) Albumin/Globulin Ratio 0.7 (1.0-1.7) Glucose (Fingerstick) 147mg/dL (70-99) Laboratory Tests Test 08/28/16 11:05 08/28/16 16:35 08/28/16 17:20 08/28/16 18:50 Prothrombin Time 13.7SEC (11.7-14.0) Prothromb Time International Ratio 1.1 (0.8-1.1) Sodium Level 144mmol/L (136-145) Potassium Level 4.2mmol/L (3.5-5.1) Chloride Level 104mmol/L (98-107) Carbon Dioxide Level 31mmol/L (21-32) Anion Gap 9 (6-14) Blood Urea Nitrogen 40mg/dL (7-20) Creatinine 2.0mg/dL (0.6-1.0) Estimated GFR (Cockcroft-Gault) 29.2 Glucose Level 195mg/dL (70-99) Calcium Level 10.2mg/dL (8.5-10.1) Magnesium Level 1.9mg/dL (1.8-2.4) Total Bilirubin 0.4mg/dL (0.2-1.0) Direct Bilirubin 0.1mg/dL (0.0-0.2) Aspartate Amino Transf (AST/SGOT) 14U/L (15-37) Alanine Aminotransferase (ALT/SGPT) 22U/L (14-59) Alkaline Phosphatase 83U/L (46-116) Creatine Kinase 107U/L (26-192) Creatine Kinase MB (Mass) 0.6ng/mL (0.0-3.6) Creatine Kinase MB Relative Index 0.6% (0-4) Troponin I Quantitative < 0.017ng/mL (0.000-0.055) FM-Upm-G-Type Natriuretic Peptide 3723pg/mL (0-449) Total Protein 7.5g/dL (6.4-8.2) Albumin 3.2g/dL (3.4-5.0) Thyroid Stimulating Hormone (TSH) 3.175uIU/mL (0.358-3.74) Urine Collection Type Unknown Urine Color Yellow Urine Clarity Clear Urine pH 7.0 Urine Specific [place] 1.010 Urine Protein Negativemg/dL (NEG-TRACE) Urine Glucose (UA) Negativemg/dL (NEG) Urine Ketones (Stick) Negativemg/dL (NEG) Urine Blood Moderate (NEG) Urine Nitrite Negative (NEG) Urine Bilirubin Negative (NEG) Urine Urobilinogen Dipstick 1.0mg/dL (0.2 mg/dL) Urine Leukocyte Esterase Trace (NEG) Urine RBC 6-10/HPF (0-2) Urine WBC 1-4/HPF (0-4) Urine Squamous Epithelial Cells Occ/LPF Urine Bacteria Many/HPF (0-FEW) Glucose (Fingerstick) 173mg/dL (70-99) Erythrocyte Sedimentation Rate 86 (0-25) Uric Acid 7.8mg/dL (2.6-6.0) C-Reactive Protein, Quantitative 48.4mg/L (0-3.3) Test 08/28/16 20:30 08/29/16 03:20 08/29/16 08:02 Troponin I Quantitative 0.018ng/mL (0.000-0.055) 0.018ng/mL (0.000-0.055) White Blood Count 8.5x10^3/uL (4.0-11.0) Red Blood Count 3.43x10^6/uL (3.50-5.40) Hemoglobin 10.2g/dL (12.0-15.5) Hematocrit 32.2% (36.0-47.0) Mean Corpuscular Volume 94fL (79-100) Mean Corpuscular Hemoglobin 30pg (25-35) Mean Corpuscular Hemoglobin Concent 32g/dL (31-37) Red Cell Distribution Width 15.3% (11.5-14.5) Platelet Count 154x10^3/uL (140-400) Neutrophils (%) (Auto) 73% (31-73) Lymphocytes (%) (Auto) 16% (24-48) Monocytes (%) (Auto) 10% (0-9) Eosinophils (%) (Auto) 1% (0-3) Basophils (%) (Auto) 1% (0-3) Neutrophils # (Auto) 6.2x10^3uL (1.8-7.7) Lymphocytes # (Auto) 1.3x10^3/uL (1.0-4.8) Monocytes # (Auto) 0.8x10^3/uL (0.0-1.1) Eosinophils # (Auto) 0.1x10^3/uL (0.0-0.7) Basophils # (Auto) 0.0x10^3/uL (0.0-0.2) Sodium Level 143mmol/L (136-145) Potassium Level 4.0mmol/L (3.5-5.1) Chloride Level 104mmol/L (98-107) Carbon Dioxide Level 32mmol/L (21-32) Anion Gap 7 (6-14) Blood Urea Nitrogen 39mg/dL (7-20) Creatinine 2.0mg/dL (0.6-1.0) Estimated GFR (Cockcroft-Gault) 29.2 BUN/Creatinine Ratio 20 (6-20) Glucose Level 161mg/dL (70-99) Calcium Level 9.8mg/dL (8.5-10.1) Total Bilirubin 0.5mg/dL (0.2-1.0) Aspartate Amino Transf (AST/SGOT) 13U/L (15-37) Alanine Aminotransferase (ALT/SGPT) 20U/L (14-59) Alkaline Phosphatase 77U/L (46-116) Total Protein 7.0g/dL (6.4-8.2) Albumin 2.9g/dL (3.4-5.0) Albumin/Globulin Ratio 0.7 (1.0-1.7) Glucose (Fingerstick) 147mg/dL (70-99) Images Images Left elbow x-rays were reviewed and reveal no fracture, dislocation, or acute bony abnormality. Degenerative changes are seen. LUE venous ultrasound also reviewed. This revealed a small fluid collection in the soft tissues along the lateral aspect of the left elbow, measuring approximately 2.3 cm. There is no evidence of deep vein thrombosis. Assessment/Plan Assessment/Plan Left elbow pain and swelling, likely related to a hematoma. Infection is not a concern at this time. We will treat the presumed hematoma with alternating ice and heat. She may continue the lidocaine patch as needed if this helps. We will continue to follow her elbow throughout her stay. At this time, nothing surgical is needed. RONALD UMANA Aug 29, 2016 10:40
[2016-08-29 10:53] VITALS: BP 129/53
[2016-08-29] MEDS: INSULIN DETEMIR 300 UNITS/3 ML INSULN.PEN. SQ SCH (12:03)
--- NOTE | 2016-08-29 14:52 | HP ---
ADMIT DATE: 08/28/2016 HISTORY OF PRESENT ILLNESS: The patient is a 76-year-old female patient who came to the Emergency Room with a complaint of left arm pain that started hurting her approximately 3 days prior to admission. Stated that nothing makes it better, nothing makes it worse. She denied any chest pain, denied any shortness breath. There was no history of any fall or trauma. Her family stated that she is weaker over the last several days and the lower extremity swelling is getting worse. They also stated that her wounds in the buttocks now bleeding. Her litrgvoh-ii-eaw has been putting Desitin cream on it and the morning she came in there was some blood in her sheet when home health nurse came over. In any case, the patient was brought to the Emergency Room and was extensively evaluated. She has had ultrasound of the left upper extremity, which showed that there is no sonographic evidence of deep vein thrombosis in the left lower extremity. An incidental note is made of a small fluid collection in the soft tissue along the lateral aspect of left elbow measures about 2.3 cm, this may be fluid collection and old hematoma or seroma; infection cannot be excluded. She did have an x-ray of her chest, which showed mild cardiomegaly and aortic atherosclerosis. No acute abnormalities detected. Her x-ray of the left elbow showed no fracture or dislocation identified. There is mild to moderate spurring at the elbow joint. There is suggestion of a small joint effusion. The patient was admitted and we did consult Dr. 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 I also consulted the orthopedic surgeon. We did start her on Lortab as well as Lidoderm patch for pain management. PHYSICAL EXAMINATION: GENERAL: On arrival to the Emergency Room, the patient looked well and was clearly in no apparent respiratory distress. She was pale. No jaundice, cyanosis, or thyromegaly. No jugular venous distention. No lower limb edema. VITAL SIGNS: Her heart rate was 88, blood pressure 152/59, temperature was 99.3, respiratory rate was 20, and oxygen saturation was 96% on room air. HEAD: Showed normocephalic, atraumatic. NECK: Supple. ABDOMEN: No guarding or rigidity. No organomegaly. Hernial orifices intact. Bowel sounds normal. NEUROLOGIC: She was awake, alert, responding appropriately. Cranial nerves intact. She moves her right upper extremity and right lower extremity without difficulty. She has exquisite tenderness of her left elbow joint. LABORATORY DATA: Her lab work show that her serum sodium was 144, potassium 4.2, chloride 104, bicarbonate 31, anion gap of 9, BUN 40, creatinine 2. Estimated GFR was 29 mL/minute. Her glucose was 195. Her calcium was slightly high at 10.2, magnesium was 1.9. Total bilirubin, AST, ALT, alkaline phosphatase were normal. Her total protein was 7.5, albumin 3.2. Her first set of cardiac enzyme showed that her troponin was less than 0.017, her white cell count was 9700, hemoglobin was 11.3, hematocrit 34, MCV 92, and platelet count 287,000. Her prothrombin time was 15.7, INR 1.1. Urine culture was unremarkable. IMPRESSION: In summary, this is a 76-year-old -[place] female patient with multiple medical problems who came in with pain in her left arm started 3 days prior to admission with no history of obvious trauma. PAST MEDICAL HISTORY: Significant for type 2 diabetes mellitus, hypertension, hyperlipidemia, history of bronchial asthma, chronic renal insufficiency stage between II and III, morbid obesity, obstructive sleep apnea, and chronic lymphedema. PAST SURGICAL HISTORY: Significant for hysterectomy and eye surgeries. ALLERGIES: SHE IS ALLERGIC TO IODINE CONTRAST AND LISINOPRIL. CURRENT MEDICATIONS: Amitriptyline 25 mg at bedtime, aspirin 81 mg once a day, cephalexin 500 mg p.o. b.i.d., ergocalciferol, vitamin D 50,000 units once a week, Nexium 40 mg once a day, ferrous sulfate 325 mg once a day, furosemide 40 mg p.o. b.i.d., gabapentin 100 mg p.o. at bedtime. She is on NovoLog as the insulin sliding scale before meals. She is on Lantus insulin 20 units at bedtime and Lantus insulin 50 units at daytime, losartan potassium 100 mg once a day, magnesium oxide 400 mg once a day, metoprolol tartrate 50 mg twice a day, metoprolol tartrate 25 mg twice a day, potassium chloride 20 mEq once a day, simvastatin 10 mg at bedtime, and Vesicare one tablet once a day. FAMILY HISTORY: Positive for diabetes, hypertension, heart disease in sisters and parents family. SOCIAL HISTORY: She lives at home with family members. She is able to walk with a walker, mostly uses a wheelchair for ambulation. She does not smoke, drink alcohol, or use recreational drugs. REVIEW OF SYSTEMS: The patient denied any blurring of vision, cataract, glaucoma, or macular degeneration. Denied any earache, tinnitus, or sensorineural deafness. Denied any nosebleeds, stuffy nose, or postnasal drip. Denied any sore throat, sore tongue, toothache, hoarseness of voice, or difficulty swallowing. Denied any nausea, vomiting, diarrhea, or constipation. Denied any hematemesis, melena, or hematochezia. Denied any dysuria, frequency, or hematuria. Denied any chest pain, shortness of breath, orthopnea, paroxysmal nocturnal dyspnea. Denied any chills, rigors, or fever. Her main complaint is pain in her left arm that started 3 days prior to arrival to the Emergency Room. PLAN: My plan is to check her sedimentation rate and C-reactive protein as well as uric acid. They will consult Dr. Elias and also the orthopedic surgeon. I did start her on Lidoderm patch as well as Lortab, and we will decide on further management accordingly. ANN-MARIE BERGMAN MD DR: LIO/wes JOB#: [id number] / [id number]
[2016-08-29 15:15] VITALS: BP 146/87
[2016-08-29] MEDS: OXYCODONE/APAP 5/325 TABLET. PO PRN (15:50)
[2016-08-29] MEDS: methylPREDNISolone 4 MG TABLET. PO SCH ×3 (17:51→20:55)
[2016-08-29 19:00] VITALS: BP 113/45
[2016-08-29] MEDS: GABAPENTIN 100 MG CAPSULE. PO SCH (20:54)
[2016-08-29] MEDS ORDERED: AMITRIPTYLINE HCL 25 MG TABLET PO SCH (21:00)
[2016-08-29] MEDS ORDERED: METOPROLOL TART IMMED RELEASE 50 MG TABLET PO SCH (21:00)
[2016-08-29] MEDS ORDERED: INSULIN DETEMIR 300 UNITS/3 ML INSULN.PEN. SQ SCH (21:00)
[2016-08-29] MEDS ORDERED: SIMVASTATIN 10 MG TABLET PO SCH (21:00)
--- NOTE | 2016-08-29 22:14 | PN ---
DATE: 08/29/2016 SUBJECTIVE: The patient is sitting on the edge of the bed, comfortably in no apparent distress. On questioning her, she continued to complain of pain in her left elbow joint and inability to move her left arm or bend her left elbow. There is some swelling on the outer aspect of left elbow with marked tenderness to touch, however, x-ray showed no evidence of fracture or dislocation, although the radiologist said that there is suggestion of a small joint effusion and the ultrasound showed that there are no sonographic evidence of deep vein thrombosis in the left upper extremity, however, there is incidental finding of a small fluid collection in the soft tissue along the lateral aspect of the left elbow, it measures approximately 2-3 cm. This may be bursal fluid collection, old hematoma or seroma, infection cannot be excluded ____ in any case. OBJECTIVE: GENERAL: When I examined her this morning, she looked well and was clearly in no apparent respiratory distress. She was slightly pale, no jaundice, cyanosis, or thyromegaly. No jugular venous distention. No limb edema. VITAL SIGNS: Her heart rate was 86, blood pressure 149/88, temperature was 98.3, respiratory rate 20, and oxygen saturation was 94% on room air. HEAD, EYES, EARS, NOSE AND THROAT: Showed normocephalic, atraumatic. NECK: Supple. HEART: Showed normal first and second heart sounds with no gallop, rub or murmur. CHEST: Clear to auscultation. No crepitation or rhonchi. ABDOMEN: Distended, soft, nontender. No guarding or rigidity. No organomegaly. Hernial orifices intact. Bowel sounds normal. NEUROLOGIC: She is awake, alert, responding appropriately. Cranial nerves intact. She moves right upper extremity to much greater extent than left upper extremity. She moves both lower extremities without difficulty. She stated she is able to ambulate with a walker at home, she was using mostly the wheelchair. LABORATORY DATA: Her lab work this morning showed that her white cell count was 8500, hemoglobin 10, hematocrit 32, MCV 94 and platelet count 154,000 with normal manual differential. Her sedimentation rate was 86 mm per hour. Her chemistry showed a serum sodium of 143, potassium 4, chloride 104, bicarbonate 32, anion gap of 7, BUN of 39, creatinine 2. Estimated GFR was 29 mL per minute. Her glucose was 161, calcium was 9.8. Total bilirubin, AST, ALT, alkaline phosphatase were normal. She has 2 sets of cardiac enzymes that were negative. Total protein was 7, albumin 2.9. Her C-reactive protein was 48.4. ASSESSMENT: In summary, this is a 76-year-old -[place] female patient with severe pain involving her left elbow with some fluid collection in the outer aspect of elbow and suggestion of fusion in her left elbow joint. Her inflammatory markers are high. Her sed rate was 86 mm per hour and C-reactive protein was 48. Her uric acid was high also at 7.8. We started her on hydrocodone ____ 5/325 to take 1 tablet every 4 hours as needed and I also started her on Lidoderm patch. We will see how she does with this and if necessary, we will consult Dr. Bangura to see if there is a rheumatologic explanation for her pain. ANN-MARIE BERGMAN MD DR: LIO/wes JOB#: [id number] / [id number]
[2016-08-29 22:46] VITALS: BP 111/48
[2016-08-30 02:52] VITALS: BP 141/71
--- NOTE | 2016-08-30 05:02 | CONS ---
DATE OF CONSULTATION: 08/29/2016 CONSULTATION REQUESTED BY: Dr. Schafer. REASON FOR CONSULTATION: Left elbow pain. HISTORY OF PRESENT ILLNESS: The patient is a 76-year-old morbidly obese female with multiple medical problems, was brought to the Emergency Room because of the severe left elbow pain. She has this left elbow pain from last 4-5 days. She describes as sudden in onset, achy, constant, exacerbates with activity with mild swelling. She tried the pain medication, but it did not help. She denies any fever or chills. So, for further evaluation and management, rheumatology consultation has been requested. She also complains of mild pain in the left hand also. PAST MEDICAL HISTORY: Type 2 diabetes, hypertension, hyperlipidemia, bronchial asthma, chronic renal insufficiency, stage III, morbid obesity, obstructive sleep apnea, chronic lymphedema. PAST SURGICAL HISTORY: Hysterectomy and eye surgery. SOCIAL HISTORY: She lives at home with family members. She denies current active tobacco smoking or alcohol abuse. FAMILY HISTORY: Negative for any autoimmune disease in the family. ALLERGIES: IODINE CONTRAST AND LISINOPRIL. REVIEW OF SYSTEMS: All other systems are reviewed and negative except HPI. MEDICATIONS: I have reviewed the list of medications as per chart. PHYSICAL EXAMINATION: VITAL SIGNS: Reveal temperature 98, pulse 74, respiration 18, and blood pressure 146/87. SKIN: She does not have any active rash. HEENT: Normocephalic, atraumatic head. No oral ulcerations. NECK: Supple. HEART: S1, S2 regular. LUNGS: Clear to the auscultation. EXTREMITIES: She has a 2-3+ pitting edema on her lower extremities. MUSCULOSKELETAL: Reveal severe tenderness with mild swelling and warmth on the left elbow area, but no redness. She has mild tenderness on the left 3rd MCP, but no swelling. I have reviewed her laboratory test results and her WBC is 8.5, hemoglobin 10.2, sed rate 86, Creatinine 2, uric acid is 7.8. C-reactive protein is 48.4. ASSESSMENT: 1. Left elbow pain. 2. Left hand pain. 3. 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 4. Diabetes type 2. 5. Chronic renal insufficiency, stage 3. 6. Morbid obesity. 7. Elevated sedimentation rate and CRP. Her current clinical presentation is quite suggestive of acute inflammatory arthritis, more likely gout with elevated uric acid. Since she has severe renal insufficiency, she is not a good candidate for the Colcrys. So, I will give her the Medrol Dosepak. Because of the acute episodes, she is also not a good candidate for the hypouricemic agent. You can use any analgesic on as needed basis. I am not requesting any test at this time. Thank you for allowing me to participate in her care. If you have any questions, please do not hesitate to contact me. YA JORDAN MD DR: KEITH/wes JOB#: [id number] / [id number] PARTH
[2016-08-30] MEDS: PANTOPRAZOLE 40 MG TABLET. PO SCH (05:45)
[2016-08-30 07:00] VITALS: BP 117/88
[2016-08-30] MEDS: methylPREDNISolone 4 MG TABLET. PO SCH ×2 (08:12→12:28)
[2016-08-30] MEDS: OXYBUTYNIN CHLORIDE 5 MG TABLET PO SCH (08:13)
[2016-08-30] MEDS: FERROUS SULFATE 325 MG TABLET PO SCH (08:13)
[2016-08-30] MEDS: ASPIRIN ENTERIC COATED 81 MG TABLET.DR. PO SCH (08:13)
[2016-08-30] MEDS: MAGNESIUM OXIDE 400 MG TABLET PO SCH (08:13)
[2016-08-30] MEDS: POTASSIUM CHLORIDE 20 MEQ TABLET.ER. PO SCH (08:13)
[2016-08-30] MEDS: OXYCODONE/APAP 5/325 TABLET. PO PRN (08:14)
[2016-08-30] MEDS: FUROSEMIDE 40 MG TABLET PO SCH ×2 (08:15→14:47)
[2016-08-30] MEDS: METOPROLOL TART IMMED RELEASE 25 MG TABLET PO SCH (08:15)
[2016-08-30] MEDS: INSULIN ASPART 300 UNITS/3 ML INSULN.PEN SQ SCH ×4 (08:19→12:04)
[2016-08-30] MEDS: INSULIN DETEMIR 300 UNITS/3 ML INSULN.PEN. SQ SCH (08:21)
[2016-08-30] MEDS: LIDOCAINE (700MG/PATCH) PATCH. TD SCH (09:00)
--- NOTE | 2016-08-30 09:50 | PDOC ---
PROGRESS NOTES Subjective Subjective Pt A&Ox3, sitting in chair at bedside and cooperative. States she is feeling good. Denies having chest pains or SOB. States arm is feeling better. No new complaints at this time Objective Objective Vital Signs Date Time Temp Pulse Resp B/P Pulse Ox O2 Delivery O2 Flow Rate FiO2 08/30/16 08:15 60 141/71 08/30/16 08:14 Room Air 08/30/16 07:00 98.4 18 93 98.4 Intake and Output 08/30/16 07:00 Intake Total 2520 ml Output Total 1350 ml Balance 1170 ml Intake Oral 2520 ml Output Urine Total 1350 ml Physical Exam Abdomen: Normal bowel sounds, Soft, No tenderness, No hepatosplenomegaly, No masses Heart: Regular rate, Normal S1, Normal S2, No murmurs, Gallops Extremities: Other (1+ edema bilat LE; apin with touch) General: Alert, Oriented X3, Cooperative, No acute distress Lungs: Clear to auscultation, Normal air movement Assessment Assessment Problems Medical Problems: (1) CHF (congestive heart failure) Status: Acute (2) Weakness Status: Acute Plan Plan of Care Stable from a cardiac standpoint Continue with plan of care Will sign off at this point Thank you for allowing me to participate in care of this patient Comment Review of Relevant I have reviewed the following items terry (where applicable) has been applied. Labs Laboratory Tests Test 08/28/16 10:10 08/28/16 11:05 08/28/16 16:35 08/28/16 17:20 White Blood Count 9.7x10^3/uL (4.0-11.0) Red Blood Count 3.71x10^6/uL (3.50-5.40) Hemoglobin 11.3g/dL (12.0-15.5) Hematocrit 34.2% (36.0-47.0) Mean Corpuscular Volume 92fL (79-100) Mean Corpuscular Hemoglobin 30pg (25-35) Mean Corpuscular Hemoglobin Concent 33g/dL (31-37) Red Cell Distribution Width 15.7% (11.5-14.5) Platelet Count 187x10^3/uL (140-400) Neutrophils (%) (Auto) 74% (31-73) Lymphocytes (%) (Auto) 14% (24-48) Monocytes (%) (Auto) 9% (0-9) Eosinophils (%) (Auto) 2% (0-3) Basophils (%) (Auto) 1% (0-3) Neutrophils # (Auto) 7.2x10^3uL (1.8-7.7) Lymphocytes # (Auto) 1.4x10^3/uL (1.0-4.8) Monocytes # (Auto) 0.9x10^3/uL (0.0-1.1) Eosinophils # (Auto) 0.2x10^3/uL (0.0-0.7) Basophils # (Auto) 0.1x10^3/uL (0.0-0.2) Prothrombin Time 13.7SEC (11.7-14.0) Prothromb Time International Ratio 1.1 (0.8-1.1) Sodium Level 144mmol/L (136-145) Potassium Level 4.2mmol/L (3.5-5.1) Chloride Level 104mmol/L (98-107) Carbon Dioxide Level 31mmol/L (21-32) Anion Gap 9 (6-14) Blood Urea Nitrogen 40mg/dL (7-20) Creatinine 2.0mg/dL (0.6-1.0) Estimated GFR (Cockcroft-Gault) 29.2 Glucose Level 195mg/dL (70-99) Calcium Level 10.2mg/dL (8.5-10.1) Magnesium Level 1.9mg/dL (1.8-2.4) Total Bilirubin 0.4mg/dL (0.2-1.0) Direct Bilirubin 0.1mg/dL (0.0-0.2) Aspartate Amino Transf (AST/SGOT) 14U/L (15-37) Alanine Aminotransferase (ALT/SGPT) 22U/L (14-59) Alkaline Phosphatase 83U/L (46-116) Creatine Kinase 107U/L (26-192) Creatine Kinase MB (Mass) 0.6ng/mL (0.0-3.6) Creatine Kinase MB Relative Index 0.6% (0-4) Troponin I Quantitative < 0.017ng/mL (0.000-0.055) BX-Eub-A-Type Natriuretic Peptide 3723pg/mL (0-449) Total Protein 7.5g/dL (6.4-8.2) Albumin 3.2g/dL (3.4-5.0) Thyroid Stimulating Hormone (TSH) 3.175uIU/mL (0.358-3.74) Urine Collection Type Unknown Urine Color Yellow Urine Clarity Clear Urine pH 7.0 Urine Specific [place] 1.010 Urine Protein Negativemg/dL (NEG-TRACE) Urine Glucose (UA) Negativemg/dL (NEG) Urine Ketones (Stick) Negativemg/dL (NEG) Urine Blood Moderate (NEG) Urine Nitrite Negative (NEG) Urine Bilirubin Negative (NEG) Urine Urobilinogen Dipstick 1.0mg/dL (0.2 mg/dL) Urine Leukocyte Esterase Trace (NEG) Urine RBC 6-10/HPF (0-2) Urine WBC 1-4/HPF (0-4) Urine Squamous Epithelial Cells Occ/LPF Urine Bacteria Many/HPF (0-FEW) Glucose (Fingerstick) 173mg/dL (70-99) Test 08/28/16 18:50 08/28/16 20:30 08/29/16 03:20 08/29/16 05:55 Erythrocyte Sedimentation Rate 86 (0-25) Uric Acid 7.8mg/dL (2.6-6.0) C-Reactive Protein, Quantitative 48.4mg/L (0-3.3) Troponin I Quantitative 0.018ng/mL (0.000-0.055) 0.018ng/mL (0.000-0.055) White Blood Count 8.5x10^3/uL (4.0-11.0) Red Blood Count 3.43x10^6/uL (3.50-5.40) Hemoglobin 10.2g/dL (12.0-15.5) Hematocrit 32.2% (36.0-47.0) Mean Corpuscular Volume 94fL (79-100) Mean Corpuscular Hemoglobin 30pg (25-35) Mean Corpuscular Hemoglobin Concent 32g/dL (31-37) Red Cell Distribution Width 15.3% (11.5-14.5) Platelet Count 154x10^3/uL (140-400) Neutrophils (%) (Auto) 73% (31-73) Lymphocytes (%) (Auto) 16% (24-48) Monocytes (%) (Auto) 10% (0-9) Eosinophils (%) (Auto) 1% (0-3) Basophils (%) (Auto) 1% (0-3) Neutrophils # (Auto) 6.2x10^3uL (1.8-7.7) Lymphocytes # (Auto) 1.3x10^3/uL (1.0-4.8) Monocytes # (Auto) 0.8x10^3/uL (0.0-1.1) Eosinophils # (Auto) 0.1x10^3/uL (0.0-0.7) Basophils # (Auto) 0.0x10^3/uL (0.0-0.2) Sodium Level 143mmol/L (136-145) Potassium Level 4.0mmol/L (3.5-5.1) Chloride Level 104mmol/L (98-107) Carbon Dioxide Level 32mmol/L (21-32) Anion Gap 7 (6-14) Blood Urea Nitrogen 39mg/dL (7-20) Creatinine 2.0mg/dL (0.6-1.0) Estimated GFR (Cockcroft-Gault) 29.2 BUN/Creatinine Ratio 20 (6-20) Glucose Level 161mg/dL (70-99) Calcium Level 9.8mg/dL (8.5-10.1) Total Bilirubin 0.5mg/dL (0.2-1.0) Aspartate Amino Transf (AST/SGOT) 13U/L (15-37) Alanine Aminotransferase (ALT/SGPT) 20U/L (14-59) Alkaline Phosphatase 77U/L (46-116) Total Protein 7.0g/dL (6.4-8.2) Albumin 2.9g/dL (3.4-5.0) Albumin/Globulin Ratio 0.7 (1.0-1.7) Nasal Screen MRSA (PCR) Negative (Negative) Test 08/29/16 08:02 08/29/16 11:38 08/29/16 16:46 08/29/16 20:43 Glucose (Fingerstick) 147mg/dL (70-99) 213mg/dL (70-99) 110mg/dL (70-99) 68mg/dL (70-99) Test 08/29/16 21:18 08/29/16 22:08 08/30/16 07:17 Glucose (Fingerstick) 59mg/dL (70-99) 119mg/dL (70-99) 147mg/dL (70-99) Laboratory Tests Test 08/29/16 11:38 08/29/16 16:46 08/29/16 20:43 08/29/16 21:18 Glucose (Fingerstick) 213mg/dL (70-99) 110mg/dL (70-99) 68mg/dL (70-99) 59mg/dL (70-99) Test 08/29/16 22:08 08/30/16 07:17 Glucose (Fingerstick) 119mg/dL (70-99) 147mg/dL (70-99) Medications Current Medications Aspirin (Ecotrin) 81 mg DAILY PO Last administered on 08/30/16 08:13; Start at 09:00 Ferrous Sulfate (Feosol) 325 mg DAILY PO Last administered on 08/30/16 08:13; Start 08/29/16 at 09:00 Gabapentin (Neurontin) 100 mg HS PO Last administered on 08/29/16 20:54; Start 08/28/16 at 21:00 Magnesium Oxide (Magnesium Oxide) 400 mg DAILY PO Last administered on 08:13; Start 08/29/16 at 09:00 Pantoprazole Sodium (Protonix) 40 mg DAILYAC PO Last administered on 08/30/16 05:45; Start 08/29/16 at 07:30 Oxybutynin Chloride (Ditropan) 5 mg BID PO Last administered on 08/30/16 08:13 ; Start 08/28/16 at 21:00 Lidocaine (Lidoderm) 1 patch DAILY TD Last administered on 08/30/16 09:00; Start 08/28/16 at 19:00 Acetaminophen/ Hydrocodone Bitart (Lortab 5/325) 1 tab PRN Q4HRS PRN PO PAIN Last administered on 08/29/16 12:47; Start 08/28/16 at 18:15; Stop 08/29/16 at 15:17; Status DC Insulin Aspart (Novolog) 0-5 UNITS TIDWMEALS SQ ; Start 08/29/16 at 08:00; Stop 08/29/16 at 08:00; Status DC Dextrose 12.5 gm PRN Q15MIN PRN IV SEE COMMENTS Last administered on 08/29/16 21:27; Start 08/28/16 at 18:15 Insulin Aspart (Novolog) 0-5 UNITS TIDWMEALS SQ Last administered on 08/28/16 18:49; Start 08/28/16 at 19:00 Furosemide (Lasix) 40 mg BID92 PO Last administered on 08/30/16 08:15; Start 08/29/16 at 09:00 Metoprolol Tartrate (Lopressor) 25 mg BID PO Last administered on 08/30/16 08: 15; Start 08/28/16 at 21:00 Losartan Potassium (Cozaar) 100 mg DAILY PO Last administered on 08/29/16 08: 35; Start 08/29/16 at 09:00 Potassium Chloride (Klor-Con) 20 meq DAILY PO Last administered on 08/30/16 08 :13; Start 08/29/16 at 09:00 Amitriptyline HCl (Elavil) 25 mg HS PO ; Start 08/29/16 at 21:00; Stop 08/29/16 at 21:00; Status DC Ergocalciferol (Vitamin D2) 50,000 unit WEEKLY PO ; Start 09/05/16 at 09:00 Metoprolol Tartrate (Lopressor) 50 mg BID PO ; Start 08/29/16 at 21:00; Stop at 21:00; Status DC Simvastatin (Zocor) 10 mg HS PO Last administered on 08/29/16 20:55; Start at 21:00 Insulin Aspart (Novolog) 10 units TIDWMEALS SQ Last administered on 08/30/16 08:22; Start 08/29/16 at 12:00 Insulin Detemir (Levemir) 20 units QHS SQ ; Start 08/29/16 at 21:00 Insulin Detemir (Levemir) 30 units DAILY08 SQ Last administered on 08/30/16 08 :21; Start 08/29/16 at 11:00 Oxycodone/ Acetaminophen (Percocet 5/325) 1 tab PRN Q4HRS PRN PO PAIN Last administered on 08/30/16 08:14; Start 08/29/16 at 15:15 Methylprednisolone (Medrol) 8 mg BID PO Last administered on 08/29/16 20:55; Start 08/29/16 at 09:00; Stop 08/29/16 at 21:01; Status DC Methylprednisolone (Medrol) 4 mg BIDPCLD PO Last administered on 08/29/16 17: 52; Start 08/29/16 at 12:30; Stop 08/29/16 at 17:31; Status DC Methylprednisolone (Medrol) 4 mg TIDPC PO Last administered on 08/30/16 08:12 ; Start 08/30/16 at 08:30; Stop 08/30/16 at 17:31 Methylprednisolone (Medrol) 8 mg QHS PO ; Start 08/30/16 at 21:00; Stop at 21:01 Methylprednisolone (Medrol) 4 mg QIDAFTMEAL PO ; Start 08/31/16 at 09:00; Stop 08/31/16 at 21:01 Methylprednisolone (Medrol) 4 mg TID PO ; Start 09/01/16 at 09:00; Stop at 21:01 Methylprednisolone (Medrol) 4 mg BID PO ; Start 09/02/16 at 09:00; Stop at 21:01 Methylprednisolone (Medrol) 4 mg DAILY PO ; Start 09/03/16 at 09:00; Stop at 09:01 Active Scripts Active Mag-Oxide (Magnesium Oxide) 400 Mg Tablet 400 Mg PO DAILY Furosemide 40 Mg Tablet 40 Mg PO BID92 Keflex (Cephalexin) 500 Mg Capsule 1 Cap PO BID Lantus Solostar (Insulin Glargine,Hum.rec.anlog) 100 Unit/1 Ml Insuln.pen 20 Unit SQ QHS Reported Novolog (Insulin Aspart) 100 Unit/1 Ml Cartridge 10 Unit SQ TIDWMEALS Lantus Solostar (Insulin Glargine,Hum.rec.anlog) 100 Unit/1 Ml Insuln.pen 30 Unit SQ DAILY08 Metoprolol Tartrate 25 Mg Tablet 1 Tab PO BID Klor-Con M20 (Potassium Chloride) 20 Meq Tab.er.prt 1 Tab PO DAILY Vitamin D2 (Ergocalciferol (Vitamin D2)) 50,000 Unit Capsule 1 Cap PO WEEKLY Vesicare (Solifenacin Succinate) 5 Mg Tablet 1 Tab PO DAILY Gabapentin 100 Mg Capsule 100 Mg PO HS Simvastatin 10 Mg Tablet 10 Mg PO HS Metoprolol Tartrate 50 Mg Tablet 1 Tab PO BID Aspirin Ec (Aspirin) 81 Mg Tablet.dr 1 Tab PO DAILY Nexium Capsule (Esomeprazole Magnesium) 40 Mg Capsule. 40 Mg PO DAILY Amitriptyline Hcl 25 Mg Tablet 25 Mg PO HS Ferrous Sulfate 325 Mg Tablet 325 Mg PO DAILY Losartan Potassium 100 Mg Tablet 100 Mg PO DAILY Vitals/I & O Vital Sign - Last 24 Hours 08/29/16 08/29/16 08/29/16 08/29/16 10:53 15:15 19:00 20:00 Temp 98.3 98.0 98.1 98.3 98.0 98.1 Pulse 74 74 73 Resp 19 B/P 129/53 146/87 113/45 Pulse Ox 92 93 96 O2 Delivery Room Air Room Air Room Air Room Air 08/29/16 08/29/16 08/30/16 08/30/16 20:54 22:46 02:52 07:00 Temp 97.8 97.7 98.4 97.8 97.7 98.4 Pulse 73 72 72 74 Resp 18 B/P 113/43 111/48 141/71 117/88 Pulse Ox 93 93 93 O2 Delivery Room Air Room Air Room Air 08/30/16 08/30/16 08:14 08:15 Pulse 60 B/P 141/71 O2 Delivery Room Air Intake and Output 08/29/16 08/29/16 08/30/16 15:00 23:00 07:00 Intake Total 1680 ml 640 ml 200 ml Output Total 350 ml 500 ml 500 ml Balance 1330 ml 140 ml -300 ml VITO HOWARD MD Aug 30, 2016 09:50
[2016-08-30] MEDS: LOSARTAN POTASSIUM 50 MG TABLET. PO SCH (10:23)
[2016-08-30 11:01] VITALS: BP 133/56
[2016-08-30] MEDS ORDERED: METH4TAB PO (14:07)
[2016-08-30] MEDS ORDERED: OXYC5CAP3 PO (14:07)
[2016-08-30] MEDS ORDERED: LIDO700A4 TP (14:07)
--- NOTE | 2016-08-30 14:14 | PDOC ---
PROGRESS NOTES Subjective Subjective Ms. Iniguez states she is doing well and her arm is feeling much better. She has been putting ice on the painful area on her elbow, which she says has really helped. She has not yet tried heat. Objective Vital Signs Vital Signs Date Time Temp Pulse Resp B/P Pulse Ox O2 Delivery O2 Flow Rate FiO2 08/30/16 11:01 97.9 72 18 133/56 92 Room Air 97.9 Physical Exam The swelling along the lateral aspect of the left elbow is improved today. There is no warmth, erythema, or skin lesion. The lateral elbow is only mildly tender to palpation today. Full AROM of the elbow, without pain. Wrist flexion and extension is improved today, without pain. Resisted wrist extension is no longer painful. The shoulder is nontender to palpation. Left shoulder motion is not painful and impingement signs are negative. Peripheral pulses are intact. Light touch sensation is normal. Labs Laboratory Tests Test 08/28/16 16:35 08/28/16 17:20 08/28/16 18:50 08/28/16 20:30 Urine Collection Type Unknown Urine Color Yellow Urine Clarity Clear Urine pH 7.0 Urine Specific [place] 1.010 Urine Protein Negativemg/dL (NEG-TRACE) Urine Glucose (UA) Negativemg/dL (NEG) Urine Ketones (Stick) Negativemg/dL (NEG) Urine Blood Moderate (NEG) Urine Nitrite Negative (NEG) Urine Bilirubin Negative (NEG) Urine Urobilinogen Dipstick 1.0mg/dL (0.2 mg/dL) Urine Leukocyte Esterase Trace (NEG) Urine RBC 6-10/HPF (0-2) Urine WBC 1-4/HPF (0-4) Urine Squamous Epithelial Cells Occ/LPF Urine Bacteria Many/HPF (0-FEW) Glucose (Fingerstick) 173mg/dL (70-99) Erythrocyte Sedimentation Rate 86 (0-25) Uric Acid 7.8mg/dL (2.6-6.0) C-Reactive Protein, Quantitative 48.4mg/L (0-3.3) Troponin I Quantitative 0.018ng/mL (0.000-0.055) Test 08/29/16 03:20 08/29/16 05:55 08/29/16 08:02 08/29/16 11:38 White Blood Count 8.5x10^3/uL (4.0-11.0) Red Blood Count 3.43x10^6/uL (3.50-5.40) Hemoglobin 10.2g/dL (12.0-15.5) Hematocrit 32.2% (36.0-47.0) Mean Corpuscular Volume 94fL (79-100) Mean Corpuscular Hemoglobin 30pg (25-35) Mean Corpuscular Hemoglobin Concent 32g/dL (31-37) Red Cell Distribution Width 15.3% (11.5-14.5) Platelet Count 154x10^3/uL (140-400) Neutrophils (%) (Auto) 73% (31-73) Lymphocytes (%) (Auto) 16% (24-48) Monocytes (%) (Auto) 10% (0-9) Eosinophils (%) (Auto) 1% (0-3) Basophils (%) (Auto) 1% (0-3) Neutrophils # (Auto) 6.2x10^3uL (1.8-7.7) Lymphocytes # (Auto) 1.3x10^3/uL (1.0-4.8) Monocytes # (Auto) 0.8x10^3/uL (0.0-1.1) Eosinophils # (Auto) 0.1x10^3/uL (0.0-0.7) Basophils # (Auto) 0.0x10^3/uL (0.0-0.2) Sodium Level 143mmol/L (136-145) Potassium Level 4.0mmol/L (3.5-5.1) Chloride Level 104mmol/L (98-107) Carbon Dioxide Level 32mmol/L (21-32) Anion Gap 7 (6-14) Blood Urea Nitrogen 39mg/dL (7-20) Creatinine 2.0mg/dL (0.6-1.0) Estimated GFR (Cockcroft-Gault) 29.2 BUN/Creatinine Ratio 20 (6-20) Glucose Level 161mg/dL (70-99) Calcium Level 9.8mg/dL (8.5-10.1) Total Bilirubin 0.5mg/dL (0.2-1.0) Aspartate Amino Transf (AST/SGOT) 13U/L (15-37) Alanine Aminotransferase (ALT/SGPT) 20U/L (14-59) Alkaline Phosphatase 77U/L (46-116) Troponin I Quantitative 0.018ng/mL (0.000-0.055) Total Protein 7.0g/dL (6.4-8.2) Albumin 2.9g/dL (3.4-5.0) Albumin/Globulin Ratio 0.7 (1.0-1.7) Nasal Screen MRSA (PCR) Negative (Negative) Glucose (Fingerstick) 147mg/dL (70-99) 213mg/dL (70-99) Test 08/29/16 16:46 08/29/16 20:43 08/29/16 21:18 08/29/16 22:08 Glucose (Fingerstick) 110mg/dL (70-99) 68mg/dL (70-99) 59mg/dL (70-99) 119mg/dL (70-99) Test 08/30/16 07:17 08/30/16 11:19 Glucose (Fingerstick) 147mg/dL (70-99) 157mg/dL (70-99) Laboratory Tests Test 08/29/16 16:46 08/29/16 20:43 08/29/16 21:18 08/29/16 22:08 Glucose (Fingerstick) 110mg/dL (70-99) 68mg/dL (70-99) 59mg/dL (70-99) 119mg/dL (70-99) Test 08/30/16 07:17 08/30/16 11:19 Glucose (Fingerstick) 147mg/dL (70-99) 157mg/dL (70-99) Assessment Assessment Left elbow hematoma, improving. Problems: Plan Plan of Care Ms. Iniguez is doing much better today. Her elbow is only very mildly painful to the touch, but is pain-free with motion now. Continue ice pack and lidocaine patch as needed. She may followup with our office on an outpatient basis as needed. From an orthopedic standpoint, she is okay for discharge back home. RONALD UMANA Aug 30, 2016 14:14
[2016-08-30 15:39] VITALS: BP 126/42
[2016-08-30] MEDS ORDERED: methylPREDNISolone 4 MG TABLET. PO SCH (21:00)
--- NOTE | 2016-08-31 08:39 | DS ---
DATE OF DISCHARGE: 08/30/2016 HISTORY OF PRESENT ILLNESS: The patient is a 76-year-old female patient who came to the Emergency Room with a complaint of severe left elbow pain that started about 4-5 days prior to admission. She describes it as that of sudden onset, achy, constant, exacerbated by any movement. She tried pain medication, but did not help. She denies any fever or chills, denied any fall or trauma. She was extensively investigated on admission which included CBC showed a white cell count is normal; however, her uric acid was high at 7.8 with normal range of 6 mg. Her sed rate and C-reactive protein also elevated. In fact, her C-reactive protein was 48.4 and sedimentation rate was 86 mm per hour. She was seen in consultation by Dr. Elias for possible cardiac origin; however, cardiac enzymes on presentation were inconsistent with a cardiac origin to pain. She was seen by Dr. Jane who recommended local treatment and I did consult the print traffic manager and given that uric acid was high with elevated inflammatory markers, his impression is that the patient has acute gouty arthritis and did start her on Medrol Dosepak given that she cannot be treated with colchicine or nonsteroidal anti-inflammatory medication and she cannot be started on allopurinol for now, we did add Lidoderm patch and oxycodone and her pain has largely subsided. She is now able to move her left upper extremity and bed her elbow joint without difficulty and therefore, a decision was made to discharge her home to follow with her primary care physician, Dr. Ponce. She probably needs to be started on allopurinol at some time. PHYSICAL EXAMINATION: GENERAL: When I examined her today, she was sitting comfortably in her edge of the bed, in no apparent respiratory distress. She was pale, but no jaundice, cyanosis or thyromegaly. No jugular venous distention. No limb edema. VITAL SIGNS: Heart rate was 72, blood pressure 133/56, temperature was 97.9, respiratory rate was 18, and oxygen saturation was 92%. HEAD, EYES, EARS, NOSE AND THROAT: Showed normocephalic, atraumatic. NECK: Supple. HEART: Showed normal first and second heart sounds with no gallop, rub or murmur. CHEST: Clear to auscultation. No crepitation or rhonchi. ABDOMEN: Distended, soft, nontender. No guarding or rigidity. No organomegaly. Hernial orifices intact. Bowel sounds normal. NEUROLOGIC: She is awake, alert, responding appropriately. Cranial nerves intact. She moves all extremities without difficulty. In particular, the pain in her left elbow was largely subsided. She is now able to move her left upper extremity, bend her elbow joint and use left hand without difficulty. Her lab work as of yesterday showed a white cell count of 8500, hemoglobin 10, hematocrit 32, MCV 94, and platelet count 254,000. Her sedimentation rate was 86 mm per hour. Her most recent chemistry showed a serum sodium 143, potassium 4, chloride 104, bicarbonate 32, anion gap of 7, BUN 39, creatinine 2. Estimated GFR was 29 mL per minute. Her glucose 161, calcium was 9.8. Total bilirubin, AST, ALT, alkaline phosphatase were normal. Her total protein 7, albumin was 2.9. Her TSH was 3.175. She has 3 sets of cardiac enzymes, all of them were less than 0.018. DISCHARGE MEDICATIONS: The patient was discharged home to continue on following medications, Lidoderm patch topically to the left elbow on for 12 hours and off for 12 hours, Medrol Dosepak as directed, oxycodone 5 mg p.o. every 6 hours as needed. She will continue with amitriptyline 25 mg, she takes 2 tablets at bedtime, aspirin 81 mg once a day, ergocalciferol for vitamin D2 50,000 units once a week. She is on Nexium 40 mg once a day, ferrous sulfate 325 mg once a day, furosemide 40 mg twice a day, gabapentin 100 mg at bedtime, NovoLog insulin 10 units before meals and Lantus insulin she gets 30 units in the morning and 20 units at bedtime. She is on losartan potassium 100 mg once a day, magnesium oxide 400 mg once a day, metoprolol tartrate 25 mg once a day, potassium chloride 20 mEq once a day, simvastatin 10 mg at bedtime and VESIcare 5 mg 1 tablet once a day. FINAL DISCHARGE DIAGNOSES: 1. Acute gouty arthritis. 2. Type 2 diabetes mellitus. 3. Chronic renal disease, stage 3, morbid obesity, hypertension and hyperlipidemia, overactive bladder. DICTATION ENDS HERE ANN-MARIE BERGMAN MD DR: LIO/wes JOB#: [id number] / [id number]
[2016-08-31] MEDS ORDERED: methylPREDNISolone 4 MG TABLET. PO SCH (09:00)
[2016-09-01] MEDS ORDERED: methylPREDNISolone 4 MG TABLET. PO SCH (09:00)
[2016-09-02] MEDS ORDERED: methylPREDNISolone 4 MG TABLET. PO SCH (09:00)
[2016-09-03] MEDS ORDERED: methylPREDNISolone 4 MG TABLET. PO SCH (09:00)
[2016-09-05] MEDS ORDERED: ERGOCALCIFEROL (VITAMIN D2) 50,000 UNIT CAPSULE PO SCH (09:00)
== END 2016-08-30 15:40 | disposition home or self-care (01) ==
LOC: ER 09:26 → 5 SOUTH 13:45
PROVIDERS: ADMIT Internal Medicine; ATTEND Internal Medicine
DX: M79.602 Pain in left arm (principal); M79.642 Pain in left hand; M25.529 Pain in unspecified elbow; K21.9 Gastro-esophageal reflux disease without esophagitis; J44.9 Chronic obstructive pulmonary disease, unspecified; J45.909 Unspecified asthma, uncomplicated; I50.9 Heart failure, unspecified; N18.3 Chronic kidney disease, stage 3 (moderate); E11.22 Type 2 diabetes mellitus with diabetic chronic kidney disease; I13.0 Hypertensive heart and chronic kidney disease with heart failure and stage 1 through stage 4 chronic kidney disease, or unspecified chronic kidney disease; R06.00 Dyspnea, unspecified; E66.01 Morbid (severe) obesity due to excess calories; J98.11 Atelectasis; I70.0 Atherosclerosis of aorta; Z82.49 Family history of ischemic heart disease and other diseases of the circulatory system; Z83.3 Family history of diabetes mellitus; M79.89 Other specified soft tissue disorders; E78.5 Hyperlipidemia, unspecified; G47.33 Obstructive sleep apnea (adult) (pediatric); I48.91 Unspecified atrial fibrillation; M25.70 Osteophyte, unspecified joint; N32.81 Overactive bladder
CPT/HCPCS: 36415; 71010; 73080; 80048; 80053; 80076; 81001; 82553; 82947; 83735; 83880; 84443; 84484; 84550; 85027; 85610; 85651; 86140; 87086; 87641; 93005; 93971; 96372; 96374; 97162; 97530; G0378; G0379; G8978; G8979; J1815; J7509; J7042

== ENCOUNTER 2016-09-11 13:58 | Inpatient (IN) | payer MEDICARE, MEDICAID ==
[~2016-09-11] VITALS: Ht 154.9 cm; Wt 126.6 kg
[~2016-09-11 13:58] MED LIST changes: +INSU100C4 SQ; +LIDO700A4 TP; +METH4TAB PO; +OXYC5CAP3 PO
--- NOTE | 2016-09-11 15:32 | PHYS DOC ---
Past Medical History Past Medical History: Asthma, CHF, COPD, Diabetes-Type II, GERD, Hypertension, Other Additional Past Medical Histor: RENAL FAILURE, obesity Past Surgical History: Cholecystectomy, Hysterectomy, Other Additional Past Surgical Histo: EYE,Left rotator cuff Alcohol Use: None Drug Use: None Adult General Chief Complaint Chief Complaint: HEADACHE HPI HPI Patient is a 76 year old female who presents with complaint of headache and neck pain. Patient states her symptoms started yesterday and have progressively gotten worse. Patient states that the pain is been waxing and waning but has remained constant since yesterday. Patient rates her pain currently is 10 out of 10. Patient states the pain is sharp and worsens with movement of her neck and left arm. Patient states that the pain radiates into her shoulder as well as towards the back of her head. The patient took oxycodone at 7:00 this morning which has not helped with the pain. Patient denies any associated fevers. Patient does complain of shortness of breath. Patient has history of CHF and COPD. Patient has not had any fever, vomiting, or diarrhea. Patient denies any recent injury or fall. Patient admits to generalized weakness which has been progressively worsening over the past few days. Review of Systems Review of Systems Constitutional: Generalized weakness, denies fever or chills [] Eyes: Denies change in visual acuity, redness, or eye pain [] HENT: Denies nasal congestion or sore throat [] Respiratory: Shortness of breath [] Cardiovascular: Denies chest pain or edema [] GI: Denies abdominal pain, nausea, vomiting, bloody stools or diarrhea [] : Denies dysuria or hematuria [] Musculoskeletal: Neck pain [] Integument: Denies rash or skin lesions [] Neurologic: Headache, denies focal weakness or sensory changes [] Endocrine: Denies polyuria or polydipsia [] Current Medications Current Medications Current Medications Medications (Trade) Dose Ordered Sig/Milli Start Time Stop Time Status Last Admin Dose Admin Fentanyl Citrate (Fentanyl 2ml Vial) 50 mcg 1X ONCE 09/11/16 16:15 09/11/16 16:16 DC 09/11/16 16:29 50 MCG Ondansetron HCl (Zofran) 4 mg 1X ONCE 09/11/16 16:15 09/11/16 16:16 DC 09/11/16 16:25 4 MG Sodium Chloride (Iv Sodium Chloride 0.9% 1000ml Bag) 1,000 ml @ 100 mls/hr Q10H 09/11/16 16:00 09/12/16 01:59 09/11/16 16:30 100 MLS/HR Allergies Allergies Allergies Coded Allergies Type Severity Reaction Last Updated Verified Iodinated Contrast Media - Oral and Allergy Severe 08/28/16 Yes lisinopril Allergy Severe lip and throat swelling 08/28/16 Yes I S O L A T I O N *CONTACT* Allergy Unknown 09/20/15 Yes Physical Exam Physical Exam Constitutional: Alert, obese, afebrile, appears in mild to moderate discomfort. [] HENT: Normocephalic, atraumatic, bilateral external ears normal, oropharynx moist, no oral exudates, nose normal. [] Eyes: PERRLA, EOMI, conjunctiva normal, no discharge. [] Neck: Normal range of motion, bilateral paraspinous muscle tenderness to palpation with associated cervical muscle spasm, supple, no stridor. [] Cardiovascular:Heart rate regular rhythm, no murmur [] Lungs & Thorax: Bilateral breath sounds clear to auscultation [] Abdomen: Bowel sounds normal, soft, no tenderness, no masses, no pulsatile masses. [] Skin: Warm, dry, no erythema, no rash. [] Back: No tenderness, no CVA tenderness. [] Extremities: No tenderness, no cyanosis, no clubbing, ROM intact, no edema. [] Neurologic: Alert and oriented X 3, normal motor function, normal sensory function, no focal deficits noted. [] Current Patient Data Vital Signs Vital Signs Date Time Temp Pulse Resp B/P Pulse Ox O2 Delivery O2 Flow Rate FiO2 09/11/16 17:01 20 96 Nasal Cannula 2.0 09/11/16 16:30 78 181/89 09/11/16 14:13 97.7 97.7 Lab Values Laboratory Tests Test 09/11/16 15:15 09/11/16 15:40 09/11/16 16:15 White Blood Count 10.0x10^3/uL (4.0-11.0) Red Blood Count 3.70x10^6/uL (3.50-5.40) Hemoglobin 11.1g/dL (12.0-15.5) L Hematocrit 34.4% (36.0-47.0) L Mean Corpuscular Volume 93fL (79-100) Mean Corpuscular Hemoglobin 30pg (25-35) Mean Corpuscular Hemoglobin Concent 32g/dL (31-37) Red Cell Distribution Width 15.1% (11.5-14.5) H Platelet Count 172x10^3/uL (140-400) Neutrophils (%) (Auto) 71% (31-73) Lymphocytes (%) (Auto) 14% (24-48) L Monocytes (%) (Auto) 10% (0-9) H Eosinophils (%) (Auto) 4% (0-3) H Basophils (%) (Auto) 1% (0-3) Neutrophils # (Auto) 7.2x10^3uL (1.8-7.7) Lymphocytes # (Auto) 1.4x10^3/uL (1.0-4.8) Monocytes # (Auto) 1.0x10^3/uL (0.0-1.1) Eosinophils # (Auto) 0.4x10^3/uL (0.0-0.7) Basophils # (Auto) 0.1x10^3/uL (0.0-0.2) Urine Collection Type Unknown Urine Color Yellow Urine Clarity Clear Urine pH 6.5 Urine Specific [place] 1.010 Urine Protein Negativemg/dL (NEG-TRACE) Urine Glucose (UA) Negativemg/dL (NEG) Urine Ketones (Stick) Negativemg/dL (NEG) Urine Blood Small (NEG) Urine Nitrite Negative (NEG) Urine Bilirubin Negative (NEG) Urine Urobilinogen Dipstick 0.2mg/dL (0.2 mg/dL) Urine Leukocyte Esterase Negative (NEG) Urine RBC 1-2/HPF (0-2) Urine WBC 0/HPF (0-4) Urine Squamous Epithelial Cells Occ/LPF Urine Bacteria Moderate/HPF (0-FEW) Sodium Level 139mmol/L (136-145) Potassium Level 4.5mmol/L (3.5-5.1) Chloride Level 102mmol/L (98-107) Carbon Dioxide Level 30mmol/L (21-32) Anion Gap 7 (6-14) Blood Urea Nitrogen 56mg/dL (7-20) H Creatinine 2.4mg/dL (0.6-1.0) H Estimated GFR (Cockcroft-Gault) 23.6 BUN/Creatinine Ratio 23 (6-20) H Glucose Level 219mg/dL (70-99) H Calcium Level 10.2mg/dL (8.5-10.1) H Magnesium Level 2.2mg/dL (1.8-2.4) Total Bilirubin 0.3mg/dL (0.2-1.0) Aspartate Amino Transferase (AST) 11U/L (15-37) L Alanine Aminotransferase (ALT) 21U/L (14-59) Alkaline Phosphatase 83U/L (46-116) Total Protein 7.5g/dL (6.4-8.2) Albumin 3.0g/dL (3.4-5.0) L Albumin/Globulin Ratio 0.7 (1.0-1.7) L Laboratory Tests 09/11/16 15:15 Laboratory Tests 09/11/16 16:15 EKG EKG Interpreted by me: Heart rate 80, atrial fibrillation, ventricularly paced rhythm, left axis deviation, no acute ST elevations or depressions [] Radiology/Procedures Radiology/Procedures [address] [id number] IMAGING REPORT Signed PATIENT: RUDDY CTOE ACCOUNT: [id number] : 1940 LOCATION: [address] [place] [address] AGE: 76 SEX: F EXAM STATUS: ADM IN ORD. PHYSICIAN: JALEEL MYERS MD REASON: shortness of breath PROCEDURE: PORTABLE CHEST 1V PORTABLE CHEST 1V Indication:shortness of breath FINDINGS: The heart size is normal. Pulmonary vasculature is within normal limits. There is no pleural effusion, consolidating infiltrate, or pneumothorax. Mediastinal contours are within normal limits. IMPRESSION: No acute disease of the chest. Electronically signed by: Evan Kilgore (Sep 11, 2016 20:34:40) DICTATED and SIGNED BY: EVAN KILGORE MD DATE: 09/11/162033 CC: JALEEL MYERS MD; MOLLY FERREIRA MD ~ [place] [id number] [place] [address] IMAGING REPORT Signed PATIENT: RUDDY COTE ACCOUNT: [id number] : 1940 LOCATION: ER AGE: 76 SEX: F EXAM STATUS: PRE ER ORD. PHYSICIAN: JALEEL MYERS MD REASON: headache PROCEDURE: HEAD WO CONTRAST CT of the head without contrast, 09/11/2016: History: Headache Comparison is made to a study from 08/29/2012. There is moderate cerebral atrophy. The ventricles are mildly enlarged on a compensatory basis. There is no shift of the midline structures. There is no evidence of acute intracranial hemorrhage or mass effect. Multiple calcifications are again noted along the tentorium. There is calcific plaquing of the distal internal carotid and vertebral arteries. IMPRESSION: 1. Chronic findings as described above. 2. No acute intracranial abnormality is detected. DICTATED and SIGNED BY: RACHAEL VOGT MD DATE: 09/11/16 1621 CC: JALEEL MYERS MD; MOLLY FERREIRA MD ~ [] Course & Med Decision Making Course & Med Decision Making Pertinent Labs and Imaging studies reviewed. (See chart for details) Patient was started on IV fluids in the emergency department. Patient's lab work shows acute on chronic renal failure with an elevated BUN likely due to dehydration. The patient's pain was treated with IV fentanyl. Patient reports mild improvement in symptoms. Patient continues to display generalized weakness and there is significant concern for patient is a fall risk at this time. The patient will be admitted for further IV hydration and pain control. I spoke with Dr. Ferreira who accepted care of patient in hospital. Dragon Disclaimer Dragon Disclaimer This electronic medical record was generated, in whole or in part, using a voice recognition dictation system. Departure Departure Impression: Primary Impression: Dehydration Additional Impressions: Neck pain Acute on chronic renal failure Disposition: ADMITTED INPATIENT Admitting Physician: Molly Ferreira Condition: STABLE Referrals: MOLLY FERREIRA MD (PCP) Problem Qualifiers JALEEL MYERS MD Sep 11, 2016 15:32
[2016-09-11 15:40] LABS: BASO # 0.1 x10^3/uL (0.0-0.2); BASO % 1 % (0-3); EOS % 4 % (0-3); HEMATOCRIT 34.4 % (36.0-47.0); HEMOGLOBIN 11.1 g/dL (12.0-15.5); LYMPH # 1.4 x10^3/uL (1.0-4.8); LYMPH % 14 % (24-48); MEAN CORPUSCULAR HEMOGLOBIN 30 pg (25-35); MEAN CORPUSCULAR HGB CONC 32 g/dL (31-37); MEAN CORPUSCULAR VOLUME 93 fL (79-100); MONO % 10 % (0-9); NEUT % 71 % (31-73); PLATELET COUNT 172 x10^3/uL (140-400); RED CELL DISTRIBUTION WIDTH 15.1 % (11.5-14.5)
[2016-09-11] MEDS ORDERED: IV NORMAL SALINE 1000ML BAG 1,000 ML IV SCH (16:00)
--- NOTE | 2016-09-11 16:11 | EKG ---
[facility] [address] [place] [address] Test Date: 2016-09-11 Test Time: 16:06:36 Pat Name: RUDDY COTE Department: Room: Gender: F Performance Instructor: : 1940 Requested By: JALEEL MYERS Order Number: [id number] Reading MD: Measurements Intervals [place] Rate: 80 P: 78 IN: 176 QRS: -30 QRSD: 122 T: -38 QT: 424 QTc: 493 Interpretive Statements SINUS RHYTHM ABNORMAL LEFT AXIS DEVIATION LVH WITH REPOLARIZATION ABNORMALITY ABNORMAL ECG RI6.01 No previous ECG available for comparison
[2016-09-11] MEDS ORDERED: ONDANSETRON PF 4 MG/2 ML VIAL. IV ONE (16:15)
[2016-09-11] MEDS ORDERED: FENTANYL PF 100 MCG/2 ML VIAL. IV ONE (16:15)
[2016-09-11 16:24] LABS: BILIRUBIN,URINE NEGATIVE (NEG); GLUCOSE,URINE NEGATIVE (NEG); NITRITE,URINE NEGATIVE (NEG); PH,URINE 6.5; PROTEIN,URINE NEGATIVE (NEG-TRACE); UROBILINOGEN,URINE 0.2 mg/dL (0.2 mg/dL)
--- NOTE | 2016-09-11 16:26 | RAD ---
CT of the head without contrast, 09/11/2016: History: Headache Comparison is made to a study from 08/29/2012. There is moderate cerebral atrophy. The ventricles are mildly enlarged on a compensatory basis. There is no shift of the midline structures. There is no evidence of acute intracranial hemorrhage or mass effect. Multiple calcifications are again noted along the tentorium. There is calcific plaquing of the distal internal carotid and vertebral arteries. IMPRESSION: 1. Chronic findings as described above. 2. No acute intracranial abnormality is detected.
[2016-09-11 16:39] LABS: CALCIUM 10.2 mg/dL (8.5-10.1); CREATININE 2.4 mg/dL (0.6-1.0); GFR 23.6; POTASSIUM 4.5 mmol/L (3.5-5.1)
[2016-09-11 16:53] LABS: ALBUMIN/GLOBULIN RATIO 0.7 (1.0-1.7); MAGNESIUM 2.2 mg/dL (1.8-2.4); TOTAL BILIRUBIN 0.3 mg/dL (0.2-1.0); TOTAL PROTEIN 7.5 g/dL (6.4-8.2)
[2016-09-11 17:34] LABS: WBC,URINE 0 /HPF (0-4)
[2016-09-11 17:35] LABS: BACTERIA,URINE MODERATE /HPF (0-FEW); SQUAMOUS EPITHELIAL CELL,UR OCC /LPF
[2016-09-11] MEDS: IV NORMAL SALINE 1000ML BAG 1,000 ML IV SCH (18:38)
[2016-09-11] MEDS ORDERED: FENTANYL PF 100 MCG/2 ML VIAL. IV PRN (18:45)
[2016-09-11] MEDS ORDERED: ONDANSETRON PF 4 MG/2 ML VIAL. IV PRN (18:45)
[2016-09-11 20:27] VITALS: BP 123/55
--- NOTE | 2016-09-11 20:36 | RAD ---
PORTABLE CHEST 1V Indication:shortness of breath FINDINGS: The heart size is normal. Pulmonary vasculature is within normal limits. There is no pleural effusion, consolidating infiltrate, or pneumothorax. Mediastinal contours are within normal limits. IMPRESSION: No acute disease of the chest. Electronically signed by: Evan Kilgore (Sep 11, 2016 20:34:40)
[2016-09-11 20:47] LABS: BASO # 0.1 x10^3/uL (0.0-0.2); BASO % 1 % (0-3); EOS % 3 % (0-3); HEMOGLOBIN 10.7 g/dL (12.0-15.5); LYMPH # 1.8 x10^3/uL (1.0-4.8); LYMPH % 21 % (24-48); MEAN CORPUSCULAR HEMOGLOBIN 30 pg (25-35); MEAN CORPUSCULAR HGB CONC 32 g/dL (31-37); MEAN CORPUSCULAR VOLUME 94 fL (79-100); MONO % 11 % (0-9); NEUT % 65 % (31-73); PLATELET COUNT 161 x10^3/uL (140-400); RED CELL DISTRIBUTION WIDTH 15.2 % (11.5-14.5); WHITE BLOOD COUNT 8.9 x10^3/uL (4.0-11.0)
[2016-09-11 23:12] VITALS: BP 163/137
[2016-09-12 02:33] VITALS: BP 92/59
[2016-09-12] MEDS: IV NORMAL SALINE 1000ML BAG 1,000 ML IV SCH ×2 (04:38→14:38)
[2016-09-12 04:52] LABS: BASO % 1 % (0-3); EOS % 2 % (0-3); HEMATOCRIT 31.1 % (36.0-47.0); HEMOGLOBIN 9.9 g/dL (12.0-15.5); LYMPH # 0.9 x10^3/uL (1.0-4.8); LYMPH % 11 % (24-48); MEAN CORPUSCULAR HEMOGLOBIN 30 pg (25-35); MEAN CORPUSCULAR HGB CONC 32 g/dL (31-37); MEAN CORPUSCULAR VOLUME 93 fL (79-100); MONO % 9 % (0-9); NEUT % 78 % (31-73); PLATELET COUNT 164 x10^3/uL (140-400); RED BLOOD COUNT 3.34 x10^6/uL (3.50-5.40); RED CELL DISTRIBUTION WIDTH 15.2 % (11.5-14.5); WHITE BLOOD COUNT 8.6 x10^3/uL (4.0-11.0)
[2016-09-12 05:05] LABS: CALCIUM 9.6 mg/dL (8.5-10.1); CREATININE 2.1 mg/dL (0.6-1.0); GFR 27.6; POTASSIUM 4.4 mmol/L (3.5-5.1)
[2016-09-12 07:00] VITALS: BP 124/67
[2016-09-12] MEDS ORDERED: METOPROLOL TART IMMED RELEASE 50 MG TABLET PO SCH (09:00)
[2016-09-12] MEDS ORDERED: INSULIN DETEMIR 300 UNITS/3 ML INSULN.PEN. SQ SCH ×2 (09:15→21:00)
--- NOTE | 2016-09-12 09:40 | PDOC ---
Provider Note Provider Note Pt seen.H&P dictated. #[id number] ANH FERREIRA MD Sep 12, 2016 09:40
[2016-09-12] MEDS: METOPROLOL TART IMMED RELEASE 25 MG TABLET PO SCH ×2 (10:10→21:08)
[2016-09-12] MEDS: OXYBUTYNIN CHLORIDE 5 MG TABLET PO SCH ×2 (10:13→21:07)
[2016-09-12] MEDS: ASPIRIN ENTERIC COATED 81 MG TABLET.DR. PO SCH (10:13)
[2016-09-12] MEDS: MAGNESIUM OXIDE 400 MG TABLET PO SCH (10:13)
[2016-09-12] MEDS: OXYCODONE IR 5 MG TABLET. PO SCH ×4 (10:13→21:08)
[2016-09-12] MEDS: FERROUS SULFATE 325 MG TABLET PO SCH (10:13)
[2016-09-12] MEDS: LOSARTAN POTASSIUM 50 MG TABLET. PO SCH (10:14)
[2016-09-12] MEDS: LIDOCAINE (700MG/PATCH) PATCH. TP SCH (10:14)
[2016-09-12 11:22] VITALS: BP 142/49
[2016-09-12] MEDS: PANTOPRAZOLE 40 MG TABLET. PO SCH (12:32)
[2016-09-12] MEDS: INSULIN ASPART 300 UNITS/3 ML INSULN.PEN SQ SCH ×2 (12:42→17:43)
--- NOTE | 2016-09-12 14:12 | RAD ---
Indication pain in the left hip. Chronic. Nontraumatic. An AP view of the pelvis was obtained as well as targeted AP and frog leg views of the left hip. No acute bony finding is seen. Advanced degenerative changes involving either hip are not seen. Vascular calcification is noted. No acute bony finding is seen. IMPRESSION: No acute or significant bony finding seen
[2016-09-12] MEDS ORDERED: INFLUENZA VAX SCREEN BY RX. MC PRN (15:15)
[2016-09-12 15:17] VITALS: BP 138/57
--- NOTE | 2016-09-12 15:17 | RAD ---
Indication pain. Chronic. A single standing AP view, incorporating both knees, was obtained. There is lateral joint space compartment narrowing bilaterally. There is some sclerosis associated with both lateral femoral condyles and lateral tibial plateaus. Valgus deformity is noted involving both knees. There is chondrocalcinosis. An acute bony finding is not seen. IMPRESSION: Moderately advanced degenerative changes involving both knees
[2016-09-12] MEDS ORDERED: FLU VACC QUAD 2016-17 (36MOS+)/PF 0.5 ML SYRINGE. VAX IM ONE (17:00)
--- NOTE | 2016-09-12 18:35 | HP ---
ADMIT DATE: 09/11/2016 LOCATION: 569 REASON FOR ADMISSION TO THE HOSPITAL: Headache and neck pain. HISTORY OF PRESENT ILLNESS: The patient is a 76-year-old female. The patient was having headache and neck pain, came to the Emergency Room. CT head was negative and the patient was found to have a slightly elevated BUN and creatinine than her baseline and was admitted to the hospital for hydration and further workup. CT head was negative. PAST MEDICAL HISTORY: History of COPD, congestive heart failure, diabetes, obesity, sleep apnea, hypertension, hyperlipidemia, chronic renal insufficiency stage III, obesity. PAST SURGICAL HISTORY: Had gallbladder surgery, hysterectomy, rotator cuff surgery, and cataract surgery. ALLERGIES: CONTRAST, LISINOPRIL causes angioedema, and IODINATED CONTRAST causes some hives. MEDICATIONS AT HOME: Vitamin D once a week 50,000 units, Lasix 40 mg twice a day, potassium 20 mEq daily. She is on amitriptyline 25 mg daily, aspirin 81 mg daily, Nexium 40 mg daily, iron 325 daily, gabapentin 100 mg at bedtime, insulin 10 units 3 times daily, Lantus 20 units at bedtime, loratadine patch daily, losartan 100 mg daily, magnesium 40 mg daily, metoprolol 75 mg twice a day, oxycodone 5 mg q.i.d., simvastatin 10 mg daily, VESIcare 5 mg daily. PERSONAL HISTORY: History of smoking in the past for 30 years. She cut down and quit smoking. Denies alcohol. Denies any street drugs. FAMILY HISTORY: Positive for diabetes, hypertension, heart disease. REVIEW OF SYSTEMS: Fourteen-system review: CARDIAC: No chest pain. LUNGS: No cough or sputum. GASTROINTESTINAL: No nausea or vomiting. Complains of just headache and neck pain. Hard to rotate the neck, turn the neck. Rest of the 14-system was reviewed and negative. PHYSICAL EXAMINATION: VITAL SIGNS: Shows temperature 97, pulse 78, respirations 19, blood pressure 162/67, 96% on room air. HEENT: Head is atraumatic. Pupils equal. Oral cavity: No congestion. NECK: The patient has pain in the back of the neck, hard to rotate the neck. No thyroid enlargement. No masses palpable. CHEST: Symmetrical. CARDIOVASCULAR: S1, S2. LUNGS: Clear to auscultation. ABDOMEN: Obese. No mass palpable. EXTERNAL GENITALIA: No Villagran. RECTAL: Deferred. EXTREMITIES: Chronic lymphedema, 2+ nonpitting, and foot, no ulcerations. SKIN: Normal skin turgor. LYMPH NODES: No significant lymphadenopathy. LABORATORY DATA: Shows a white count of 10, hemoglobin 11, platelets 172. Electrolytes show sodium 139, potassium 4.5, chloride 102, bicarb 30, BUN 56, creatinine 2.4, glucose 219. LFTs were normal. Urine was negative for nitrite, esterase. Chest x-ray, no acute. CT scan of the head was negative for acute abnormality. FINAL IMPRESSION: 1. Severe headache and neck pain, possible cervical disk disease. 2. Acute on chronic renal failure. 3. Chronic renal disease, stage III. 4. Diabetes, insulin-dependent. 5. Morbid obesity. 6. Obstructive sleep apnea, on CPAP. 7. Chronic obstructive pulmonary disease. 8. Chronic diastolic heart failure. 9. Hypertension. 10. Hyperlipidemia. PLAN: At this time, admit to the hospital. Get MRI of the cervical spine. Rehab consult, Dr. Teague; PT, OT. IV fluids for hydration, monitor kidney function, and see how she does. ANH FERREIRA MD DR: HANNA/wes JOB#: [id number] / [id number]
[2016-09-12 19:00] VITALS: BP 134/61
[2016-09-12] MEDS ORDERED: DEXTROSE 50% 25 GM / 50ML DISP.SYRIN. IV ONE (20:54)
[2016-09-12] MEDS ORDERED: AMITRIPTYLINE HCL 25 MG TABLET PO SCH (21:00)
[2016-09-12] MEDS ORDERED: GABAPENTIN 100 MG CAPSULE. PO SCH (21:00)
[2016-09-12] MEDS ORDERED: SIMVASTATIN 10 MG TABLET PO SCH (21:00)
[2016-09-12 22:37] VITALS: BP 121/94
[2016-09-13 03:19] VITALS: BP 138/57
[2016-09-13 07:00] VITALS: BP 123/42
[2016-09-13] MEDS: INSULIN ASPART 300 UNITS/3 ML INSULN.PEN SQ SCH ×3 (08:00→16:13)
[2016-09-13] MEDS: METOPROLOL TART IMMED RELEASE 25 MG TABLET PO SCH (08:11)
[2016-09-13] MEDS: LOSARTAN POTASSIUM 50 MG TABLET. PO SCH (08:11)
[2016-09-13] MEDS: ASPIRIN ENTERIC COATED 81 MG TABLET.DR. PO SCH (08:11)
[2016-09-13] MEDS: OXYCODONE IR 5 MG TABLET. PO SCH ×3 (08:12→16:12)
[2016-09-13] MEDS: PANTOPRAZOLE 40 MG TABLET. PO SCH (08:12)
[2016-09-13] MEDS: OXYBUTYNIN CHLORIDE 5 MG TABLET PO SCH (08:12)
[2016-09-13] MEDS: FERROUS SULFATE 325 MG TABLET PO SCH (08:12)
[2016-09-13] MEDS: MAGNESIUM OXIDE 400 MG TABLET PO SCH (08:12)
[2016-09-13] MEDS: LIDOCAINE (700MG/PATCH) PATCH. TP SCH (08:14)
[2016-09-13 08:23] LABS: BASO # 0.1 x10^3/uL (0.0-0.2); BASO % 1 % (0-3); EOS % 3 % (0-3); HEMATOCRIT 30.9 % (36.0-47.0); HEMOGLOBIN 9.9 g/dL (12.0-15.5); LYMPH # 1.4 x10^3/uL (1.0-4.8); LYMPH % 17 % (24-48); MEAN CORPUSCULAR HEMOGLOBIN 30 pg (25-35); MEAN CORPUSCULAR HGB CONC 32 g/dL (31-37); MEAN CORPUSCULAR VOLUME 93 fL (79-100); MONO % 11 % (0-9); NEUT % 68 % (31-73); PLATELET COUNT 163 x10^3/uL (140-400); RED BLOOD COUNT 3.33 x10^6/uL (3.50-5.40); WHITE BLOOD COUNT 7.9 x10^3/uL (4.0-11.0)
[2016-09-13 08:28] LABS: CALCIUM 9.6 mg/dL (8.5-10.1); CREATININE 1.8 mg/dL (0.6-1.0); GFR 32.9; POTASSIUM 4.2 mmol/L (3.5-5.1)
--- NOTE | 2016-09-13 08:45 | RAD ---
4 view cervical spine series History: Neck pain. Findings: No acute fracture or anterolisthesis or discitis or osteolytic process is seen. No prevertebral soft tissue swelling is evident. Degenerative endplate spurring is seen throughout the cervical spine. There is partial fusion of C3-4 disc space. The facet joint at this level is not well seen and may be partially fused as well. IMPRESSION: Degenerative cervical spondylosis.
--- NOTE | 2016-09-13 08:50 | RAD ---
Three-view lumbar spine series Clinical indications: Low back pain. Findings: No compression fracture or discitis or osteolytic process is seen. Grade 1 anterolisthesis of L4-5 is seen. Degenerative facet arthropathy is seen at this level. There is mild degenerative endplate spurring throughout the lumbar spine. There is mild degenerative disc space narrowing at L3-4 and moderate degenerative disc space narrowing at L4-5. IMPRESSION: Degenerative lumbar spondylosis. Grade 1 anterolisthesis of L4-5.
[2016-09-13] MEDS ORDERED: BUPIVACAINE MPF 0.25% 10 ML VIAL. IJ ONE (09:45)
[2016-09-13] MEDS ORDERED: methylPREDNISolone ACETATE 40 MG/ML VIAL. IM ONE (09:45)
--- NOTE | 2016-09-13 09:45 | PDOC ---
PROGRESS NOTES Subjective Subjective She admits continued neck pain but refused to even have ct scan of her neck and low back. Objective Objective Vital Signs Date Time Temp Pulse Resp B/P Pulse Ox O2 Delivery O2 Flow Rate FiO2 09/13/16 09:12 20 92 Room Air 2.0 09/13/16 08:11 120 138/57 09/13/16 07:00 98.5 98.5 Intake and Output 09/13/16 07:00 Intake Total 540 ml Balance 540 ml Intake Oral 540 ml # Voids 3 Physical Exam Physical Exam She is sitting up in bedside chair and seems to be in no acute distress and continues with tenderness to palpation over cervical paraspinal and upper trapezius muscles,over sacroiliac joints,trochanteric bursa bilaterally. X-rays revealed DDD and DJD of cervical and lumbar vertebrae with fusion of C3-C4 and spondylolisthesis of L3 on L4 and narrowing of medial knee joint lines with some valgus deformity and mild DJD of her hips. Assessment Assessment Problems Medical Problems: (1) Acute on chronic renal failure Status: Acute (2) Acute renal failure Status: Acute (3) Dehydration Status: Acute (4) Neck pain Status: Acute Plan Plan of Care At her request,I have injected painful trigger points over left cervical paraspinal muscles with marcaine and depomedrol solution under aseptic skin technique and she tolerated the procedure satisfactorily without any side effects.Agree with plans for home with home health follow up. I spoke to . Comment Review of Relevant I have reviewed the following items terry (where applicable) has been applied. Labs Laboratory Tests Test 09/11/16 14:29 09/11/16 15:15 09/11/16 15:40 09/11/16 16:15 Glucose (Fingerstick) 222mg/dL (70-99) White Blood Count 10.0x10^3/uL (4.0-11.0) Red Blood Count 3.70x10^6/uL (3.50-5.40) Hemoglobin 11.1g/dL (12.0-15.5) Hematocrit 34.4% (36.0-47.0) Mean Corpuscular Volume 93fL (79-100) Mean Corpuscular Hemoglobin 30pg (25-35) Mean Corpuscular Hemoglobin Concent 32g/dL (31-37) Red Cell Distribution Width 15.1% (11.5-14.5) Platelet Count 172x10^3/uL (140-400) Neutrophils (%) (Auto) 71% (31-73) Lymphocytes (%) (Auto) 14% (24-48) Monocytes (%) (Auto) 10% (0-9) Eosinophils (%) (Auto) 4% (0-3) Basophils (%) (Auto) 1% (0-3) Neutrophils # (Auto) 7.2x10^3uL (1.8-7.7) Lymphocytes # (Auto) 1.4x10^3/uL (1.0-4.8) Monocytes # (Auto) 1.0x10^3/uL (0.0-1.1) Eosinophils # (Auto) 0.4x10^3/uL (0.0-0.7) Basophils # (Auto) 0.1x10^3/uL (0.0-0.2) Urine Collection Type Unknown Urine Color Yellow Urine Clarity Clear Urine pH 6.5 Urine Specific [place] 1.010 Urine Protein Negativemg/dL (NEG-TRACE) Urine Glucose (UA) Negativemg/dL (NEG) Urine Ketones (Stick) Negativemg/dL (NEG) Urine Blood Small (NEG) Urine Nitrite Negative (NEG) Urine Bilirubin Negative (NEG) Urine Urobilinogen Dipstick 0.2mg/dL (0.2 mg/dL) Urine Leukocyte Esterase Negative (NEG) Urine RBC 1-2/HPF (0-2) Urine WBC 0/HPF (0-4) Urine Squamous Epithelial Cells Occ/LPF Urine Bacteria Moderate/HPF (0-FEW) Sodium Level 139mmol/L (136-145) Potassium Level 4.5mmol/L (3.5-5.1) Chloride Level 102mmol/L (98-107) Carbon Dioxide Level 30mmol/L (21-32) Anion Gap 7 (6-14) Blood Urea Nitrogen 56mg/dL (7-20) Creatinine 2.4mg/dL (0.6-1.0) Estimated GFR (Cockcroft-Gault) 23.6 BUN/Creatinine Ratio 23 (6-20) Glucose Level 219mg/dL (70-99) Calcium Level 10.2mg/dL (8.5-10.1) Magnesium Level 2.2mg/dL (1.8-2.4) Total Bilirubin 0.3mg/dL (0.2-1.0) Aspartate Amino Transf (AST/SGOT) 11U/L (15-37) Alanine Aminotransferase (ALT/SGPT) 21U/L (14-59) Alkaline Phosphatase 83U/L (46-116) Total Protein 7.5g/dL (6.4-8.2) Albumin 3.0g/dL (3.4-5.0) Albumin/Globulin Ratio 0.7 (1.0-1.7) Test 09/11/16 20:35 09/12/16 04:30 09/12/16 10:37 09/12/16 11:06 White Blood Count 8.9x10^3/uL (4.0-11.0) 8.6x10^3/uL (4.0-11.0) Red Blood Count 3.60x10^6/uL (3.50-5.40) 3.34x10^6/uL (3.50-5.40) Hemoglobin 10.7g/dL (12.0-15.5) 9.9g/dL (12.0-15.5) Hematocrit 34.0% (36.0-47.0) 31.1% (36.0-47.0) Mean Corpuscular Volume 94fL (79-100) 93fL (79-100) Mean Corpuscular Hemoglobin 30pg (25-35) 30pg (25-35) Mean Corpuscular Hemoglobin Concent 32g/dL (31-37) 32g/dL (31-37) Red Cell Distribution Width 15.2% (11.5-14.5) 15.2% (11.5-14.5) Platelet Count 161x10^3/uL (140-400) 164x10^3/uL (140-400) Neutrophils (%) (Auto) 65% (31-73) 78% (31-73) Lymphocytes (%) (Auto) 21% (24-48) 11% (24-48) Monocytes (%) (Auto) 11% (0-9) 9% (0-9) Eosinophils (%) (Auto) 3% (0-3) 2% (0-3) Basophils (%) (Auto) 1% (0-3) 1% (0-3) Neutrophils # (Auto) 5.8x10^3uL (1.8-7.7) 6.7x10^3uL (1.8-7.7) Lymphocytes # (Auto) 1.8x10^3/uL (1.0-4.8) 0.9x10^3/uL (1.0-4.8) Monocytes # (Auto) 1.0x10^3/uL (0.0-1.1) 0.8x10^3/uL (0.0-1.1) Eosinophils # (Auto) 0.3x10^3/uL (0.0-0.7) 0.2x10^3/uL (0.0-0.7) Basophils # (Auto) 0.1x10^3/uL (0.0-0.2) 0.0x10^3/uL (0.0-0.2) Sodium Level 142mmol/L (136-145) Potassium Level 4.4mmol/L (3.5-5.1) Chloride Level 106mmol/L (98-107) Carbon Dioxide Level 30mmol/L (21-32) Anion Gap 6 (6-14) Blood Urea Nitrogen 51mg/dL (7-20) Creatinine 2.1mg/dL (0.6-1.0) Estimated GFR (Cockcroft-Gault) 27.6 Glucose Level 193mg/dL (70-99) Calcium Level 9.6mg/dL (8.5-10.1) Glucose (Fingerstick) 259mg/dL (70-99) 332mg/dL (70-99) Test 09/12/16 16:21 09/12/16 20:28 09/12/16 20:52 09/12/16 21:49 Glucose (Fingerstick) 214mg/dL (70-99) 66mg/dL (70-99) 67mg/dL (70-99) 119mg/dL (70-99) Test 09/13/16 08:10 White Blood Count 7.9x10^3/uL (4.0-11.0) Red Blood Count 3.33x10^6/uL (3.50-5.40) Hemoglobin 9.9g/dL (12.0-15.5) Hematocrit 30.9% (36.0-47.0) Mean Corpuscular Volume 93fL (79-100) Mean Corpuscular Hemoglobin 30pg (25-35) Mean Corpuscular Hemoglobin Concent 32g/dL (31-37) Red Cell Distribution Width 15.0% (11.5-14.5) Platelet Count 163x10^3/uL (140-400) Neutrophils (%) (Auto) 68% (31-73) Lymphocytes (%) (Auto) 17% (24-48) Monocytes (%) (Auto) 11% (0-9) Eosinophils (%) (Auto) 3% (0-3) Basophils (%) (Auto) 1% (0-3) Neutrophils # (Auto) 5.3x10^3uL (1.8-7.7) Lymphocytes # (Auto) 1.4x10^3/uL (1.0-4.8) Monocytes # (Auto) 0.9x10^3/uL (0.0-1.1) Eosinophils # (Auto) 0.2x10^3/uL (0.0-0.7) Basophils # (Auto) 0.1x10^3/uL (0.0-0.2) Sodium Level 140mmol/L (136-145) Potassium Level 4.2mmol/L (3.5-5.1) Chloride Level 105mmol/L (98-107) Carbon Dioxide Level 30mmol/L (21-32) Anion Gap 5 (6-14) Blood Urea Nitrogen 37mg/dL (7-20) Creatinine 1.8mg/dL (0.6-1.0) Estimated GFR (Cockcroft-Gault) 32.9 Glucose Level 91mg/dL (70-99) Calcium Level 9.6mg/dL (8.5-10.1) Laboratory Tests Test 09/12/16 10:37 09/12/16 11:06 09/12/16 16:21 09/12/16 20:28 Glucose (Fingerstick) 259mg/dL (70-99) 332mg/dL (70-99) 214mg/dL (70-99) 66mg/dL (70-99) Test 09/12/16 20:52 09/12/16 21:49 09/13/16 08:10 Glucose (Fingerstick) 67mg/dL (70-99) 119mg/dL (70-99) White Blood Count 7.9x10^3/uL (4.0-11.0) Red Blood Count 3.33x10^6/uL (3.50-5.40) Hemoglobin 9.9g/dL (12.0-15.5) Hematocrit 30.9% (36.0-47.0) Mean Corpuscular Volume 93fL (79-100) Mean Corpuscular Hemoglobin 30pg (25-35) Mean Corpuscular Hemoglobin Concent 32g/dL (31-37) Red Cell Distribution Width 15.0% (11.5-14.5) Platelet Count 163x10^3/uL (140-400) Neutrophils (%) (Auto) 68% (31-73) Lymphocytes (%) (Auto) 17% (24-48) Monocytes (%) (Auto) 11% (0-9) Eosinophils (%) (Auto) 3% (0-3) Basophils (%) (Auto) 1% (0-3) Neutrophils # (Auto) 5.3x10^3uL (1.8-7.7) Lymphocytes # (Auto) 1.4x10^3/uL (1.0-4.8) Monocytes # (Auto) 0.9x10^3/uL (0.0-1.1) Eosinophils # (Auto) 0.2x10^3/uL (0.0-0.7) Basophils # (Auto) 0.1x10^3/uL (0.0-0.2) Sodium Level 140mmol/L (136-145) Potassium Level 4.2mmol/L (3.5-5.1) Chloride Level 105mmol/L (98-107) Carbon Dioxide Level 30mmol/L (21-32) Anion Gap 5 (6-14) Blood Urea Nitrogen 37mg/dL (7-20) Creatinine 1.8mg/dL (0.6-1.0) Estimated GFR (Cockcroft-Gault) 32.9 Glucose Level 91mg/dL (70-99) Calcium Level 9.6mg/dL (8.5-10.1) Medications Current Medications Sodium Chloride (Iv Sodium Chloride 0.9% 1000ml Bag) 1,000 ml @ 100 mls/hr Q10H IV Last administered on 09/11/16 16:30; Start 09/11/16 at 16:00; Stop at 01:59; Status DC Fentanyl Citrate (Fentanyl 2ml Vial) 50 mcg 1X ONCE IV Last administered on 16:29; Start 09/11/16 at 16:15; Stop 09/11/16 at 16:16; Status DC Ondansetron HCl (Zofran) 4 mg 1X ONCE IV Last administered on 09/11/16 16:25; Start 09/11/16 at 16:15; Stop 09/11/16 at 16:16; Status DC Ondansetron HCl (Zofran) 4 mg PRN Q8HRS PRN IV NAUSEA/VOMITING; Start 09/11/16 at 18:45; Stop 09/12/16 at 18:44; Status DC Fentanyl Citrate 50 mcg 50 mcg PRN Q2HR PRN IV PAIN Last administered on 21:39; Start 09/11/16 at 18:45; Stop 09/12/16 at 18:44; Status DC Sodium Chloride (Iv Sodium Chloride 0.9% 1000ml Bag) 1,000 ml @ 100 mls/hr Q10H IV Last administered on 09/12/16 04:38; Start 09/11/16 at 18:38; Stop at 18:37; Status DC Amitriptyline HCl (Elavil) 25 mg HS PO ; Start 09/12/16 at 21:00 Aspirin (Ecotrin) 81 mg DAILY PO Last administered on 09/13/16 08:11; Start 09/12/16 at 09:00 Ferrous Sulfate (Feosol) 325 mg DAILY PO Last administered on 09/13/16 08:12; Start 09/12/16 at 09:00 Gabapentin (Neurontin) 100 mg HS PO Last administered on 09/12/16 21:08; Start 09/12/16 at 21:00 Lidocaine (Lidoderm) 1 patch DAILY TP Last administered on 09/13/16 08:14; Start 09/12/16 at 09:00 Magnesium Oxide (Magnesium Oxide) 400 mg DAILY PO Last administered on 08:12; Start 09/12/16 at 09:00 Metoprolol Tartrate (Lopressor) 25 mg BID PO Last administered on 09/13/16 08: 11; Start 09/12/16 at 09:00 Metoprolol Tartrate (Lopressor) 50 mg BID PO ; Start 09/12/16 at 09:00; Status UNV Simvastatin (Zocor) 10 mg HS PO Last administered on 09/12/16 21:08; Start 09/12 at 21:00 Pantoprazole Sodium (Protonix) 40 mg DAILYAC PO Last administered on 09/13/16 08:12; Start 09/12/16 at 11:30 Insulin Aspart (Novolog) 10 units TIDWMEALS SQ Last administered on 09/12/16 17 :43; Start 09/12/16 at 16:30 Insulin Detemir (Levemir) 20 units QHS SQ ; Start 09/12/16 at 21:00 Insulin Detemir (Levemir) 30 units DAILY08 SQ Last administered on 09/12/16 09: 15; Start 09/12/16 at 09:15; Stop 09/12/16 at 10:01; Status DC Losartan Potassium (Cozaar) 100 mg DAILY PO Last administered on 09/13/16 08:11 ; Start 09/12/16 at 09:15 Oxycodone HCl (Roxicodone) 5 mg QID PO Last administered on 09/13/16 08:12; Start 09/12/16 at 09:15 Oxybutynin Chloride (Ditropan) 5 mg BID PO Last administered on 09/13/16 08:12 ; Start 09/12/16 at 09:15 Info (Do NOT chart on this placeholder) 1 each PRN 1X PRN MC SEE COMMENTS; Start 09/12/16 at 15:15; Status UNV Influenza Virus Vaccine Quadrival (Fluarix Quad 1770-1463 Syringe) 0.5 ml ONCE ONCE VAX IM Last administered on 09/12/16 17:36; Start 09/12/16 at 17:00; Stop 09/12/16 at 17:01; Status DC Dextrose 25 gm STK-MED ONCE IV Last administered on 2/7/17at 21:09; Start at 20:54; Stop 09/12/16 at 20:55; Status DC Active Scripts Active Oxycodone Hcl 5 Mg Capsule 1 Cap PO QID Medrol (Methylprednisolone) 4 Mg Tablet 4 Mg PO UD Lidoderm (Lidocaine) 700 Mg Adh..patch 1 Patch TP DAILY Mag-Oxide (Magnesium Oxide) 400 Mg Tablet 400 Mg PO DAILY Furosemide 40 Mg Tablet 40 Mg PO BID92 Keflex (Cephalexin) 500 Mg Capsule 1 Cap PO BID Lantus Solostar (Insulin Glargine,Hum.rec.anlog) 100 Unit/1 Ml Insuln.pen 20 Unit SQ QHS Reported Novolog (Insulin Aspart) 100 Unit/1 Ml Cartridge 10 Unit SQ TIDWMEALS Lantus Solostar (Insulin Glargine,Hum.rec.anlog) 100 Unit/1 Ml Insuln.pen 30 Unit SQ DAILY08 Metoprolol Tartrate 25 Mg Tablet 1 Tab PO BID Klor-Con M20 (Potassium Chloride) 20 Meq Tab.er.prt 1 Tab PO DAILY Vitamin D2 (Ergocalciferol (Vitamin D2)) 50,000 Unit Capsule 1 Cap PO WEEKLY Vesicare (Solifenacin Succinate) 5 Mg Tablet 1 Tab PO DAILY Gabapentin 100 Mg Capsule 100 Mg PO HS Simvastatin 10 Mg Tablet 10 Mg PO HS Metoprolol Tartrate 50 Mg Tablet 1 Tab PO BID Aspirin Ec (Aspirin) 81 Mg Tablet.dr 1 Tab PO DAILY Nexium Capsule (Esomeprazole Magnesium) 40 Mg Capsule.dr 40 Mg PO DAILY Amitriptyline Hcl 25 Mg Tablet 25 Mg PO HS Ferrous Sulfate 325 Mg Tablet 325 Mg PO DAILY Losartan Potassium 100 Mg Tablet 100 Mg PO DAILY Vitals/I & O Vital Sign - Last 24 Hours 09/12/16 09/12/16 09/12/16 09/12/16 10:10 10:13 10:14 11:22 Temp 97.9 97.9 Pulse 104 104 98 Resp 18 20 B/P 127/67 124/67 142/49 Pulse Ox 92 O2 Delivery Room Air Room Air 09/12/16 09/12/16 09/12/16 09/12/16 12:32 15:17 17:33 19:00 Temp 96.8 98.5 96.8 98.5 Pulse 83 79 Resp 18 20 16 18 B/P 138/57 134/61 Pulse Ox 96 94 O2 Delivery Room Air Room Air Room Air Room Air 09/12/16 09/12/16 09/12/16 09/12/16 20:05 21:08 21:08 22:37 Pulse 79 87 Resp 20 B/P 134/61 121/94 Pulse Ox 93 O2 Delivery Room Air Room Air Room Air 09/13/16 09/13/16 09/13/16 09/13/16 03:19 07:00 07:39 08:11 Temp 97.7 98.5 97.7 98.5 Pulse 120 86 120 Resp 20 18 B/P 138/57 123/42 138/57 Pulse Ox 92 94 O2 Delivery Room Air Room Air Room Air O2 Flow Rate 2.0 09/13/16 09/13/16 09/13/16 08:11 08:12 09:12 Pulse 120 Resp 20 20 B/P 138/57 Pulse Ox 92 92 O2 Delivery Room Air Room Air O2 Flow Rate 2.0 2.0 Intake and Output 09/12/16 09/12/16 09/13/16 15:00 23:00 07:00 Intake Total 540 ml Balance 540 ml NEREIDA NG MD Sep 13, 2016 09:45
--- NOTE | 2016-09-13 10:04 | PDOC ---
PROGRESS NOTES Subjective Subjective less headache and neck pain Objective Objective Vital Signs Date Time Temp Pulse Resp B/P Pulse Ox O2 Delivery O2 Flow Rate FiO2 09/13/16 09:12 20 92 Room Air 2.0 09/13/16 08:11 120 138/57 09/13/16 07:00 98.5 98.5 Intake and Output 09/13/16 07:00 Intake Total 540 ml Balance 540 ml Intake Oral 540 ml # Voids 3 Physical Exam Abdomen: Normal bowel sounds, Soft Heart: Regular rate, Normal S1, Normal S2 Extremities: No clubbing General: Alert HEENT: Atraumatic Lungs: Clear to auscultation MUSCULOSKELETAL: Other (neck restricted movement) Psych/Mental Status: Mood NL Skin: No breakdown Diagnosis Problem List Problems Medical Problems: (1) Acute on chronic renal failure Status: Acute (2) Acute renal failure Status: Acute (3) Dehydration Status: Acute (4) Neck pain Status: Acute Assessment Assessment Problems Medical Problems: (1) Acute on chronic renal failure Status: Acute (2) Acute renal failure Status: Acute (3) Dehydration Status: Acute (4) Neck pain Status: Acute FINAL IMPRESSION: 1. Severe headache and neck pain, possible cervical disk disease. 2. Acute on chronic renal failure. 3. Chronic renal disease, stage III. 4. Diabetes, insulin-dependent. 5. Morbid obesity. 6. Obstructive sleep apnea, on CPAP. 7. Chronic obstructive pulmonary disease. 8. Chronic diastolic heart failure. 9. Hypertension. 10. Hyperlipidemia. PLAN: pt refused MRI of cervical spine and also ct scan . x ray show sever djd cervical spine. donot wish epidural shots . d/c home today. cr 1.8 improved from 2.6. At this time, admit to the hospital. Get MRI of the cervical spine. Rehab consult, Dr. Teague; PT, OT. IV fluids for hydration, monitor kidney function, and see how she does. Problems: Plan Plan of Care Problems Medical Problems: (1) Acute on chronic renal failure Status: Acute (2) Acute renal failure Status: Acute (3) Dehydration Status: Acute (4) Neck pain Status: Acute Comment Review of Relevant I have reviewed the following items terry (where applicable) has been applied. Labs Laboratory Tests Test 09/12/16 10:37 09/12/16 11:06 09/12/16 16:21 09/12/16 20:28 Glucose (Fingerstick) 259mg/dL (70-99) 332mg/dL (70-99) 214mg/dL (70-99) 66mg/dL (70-99) Test 09/12/16 20:52 09/12/16 21:49 09/13/16 08:10 Glucose (Fingerstick) 67mg/dL (70-99) 119mg/dL (70-99) White Blood Count 7.9x10^3/uL (4.0-11.0) Red Blood Count 3.33x10^6/uL (3.50-5.40) Hemoglobin 9.9g/dL (12.0-15.5) Hematocrit 30.9% (36.0-47.0) Mean Corpuscular Volume 93fL (79-100) Mean Corpuscular Hemoglobin 30pg (25-35) Mean Corpuscular Hemoglobin Concent 32g/dL (31-37) Red Cell Distribution Width 15.0% (11.5-14.5) Platelet Count 163x10^3/uL (140-400) Neutrophils (%) (Auto) 68% (31-73) Lymphocytes (%) (Auto) 17% (24-48) Monocytes (%) (Auto) 11% (0-9) Eosinophils (%) (Auto) 3% (0-3) Basophils (%) (Auto) 1% (0-3) Neutrophils # (Auto) 5.3x10^3uL (1.8-7.7) Lymphocytes # (Auto) 1.4x10^3/uL (1.0-4.8) Monocytes # (Auto) 0.9x10^3/uL (0.0-1.1) Eosinophils # (Auto) 0.2x10^3/uL (0.0-0.7) Basophils # (Auto) 0.1x10^3/uL (0.0-0.2) Sodium Level 140mmol/L (136-145) Potassium Level 4.2mmol/L (3.5-5.1) Chloride Level 105mmol/L (98-107) Carbon Dioxide Level 30mmol/L (21-32) Anion Gap 5 (6-14) Blood Urea Nitrogen 37mg/dL (7-20) Creatinine 1.8mg/dL (0.6-1.0) Estimated GFR (Cockcroft-Gault) 32.9 Glucose Level 91mg/dL (70-99) Calcium Level 9.6mg/dL (8.5-10.1) Medications Current Medications Amitriptyline HCl (Elavil) 25 mg HS PO ; Start 09/12/16 at 21:00 Bupivacaine HCl (Sensorcaine-Mpf 0.25%) 10 ml 1X ONCE IJ ; Start 09/13/16 at 09: 45; Stop 09/13/16 at 09:46; Status DC Dextrose 25 gm STK-MED ONCE IV Last administered on 09/12/16 21:09; Start at 20:54; Stop 09/12/16 at 20:55; Status DC Gabapentin (Neurontin) 100 mg HS PO Last administered on 09/12/16 21:08; Start 09/12/16 at 21:00 Influenza Virus Vaccine Quadrival (Fluarix Quad [id number] Syringe) 0.5 ml ONCE ONCE VAX IM Last administered on 09/12/16 17:36; Start 09/12/16 at 17:00; Stop 09/12/16 at 17:01; Status DC Info (Do NOT chart on this placeholder) 1 each PRN 1X PRN MC SEE COMMENTS; Start 09/12/16 at 15:15; Status UNV Insulin Aspart (Novolog) 10 units TIDWMEALS SQ Last administered on 09/12/16 17 :43; Start 09/12/16 at 16:30 Insulin Detemir (Levemir) 20 units QHS SQ ; Start 09/12/16 at 21:00 Methylprednisolone Acetate (Depo-Medrol 40mg Vial) 40 mg 1X ONCE IM ; Start 09/13/16 at 09:45; Stop 09/13/16 at 09:46; Status DC Pantoprazole Sodium (Protonix) 40 mg DAILYAC PO Last administered on 09/13/16 08:12; Start 09/12/16 at 11:30 Simvastatin (Zocor) 10 mg HS PO Last administered on 09/12/16 21:08; Start 09/12 at 21:00 Vitals/I & O Vital Sign - Last 24 Hours 09/12/16 09/12/16 09/12/16 09/12/16 10:10 10:13 10:14 11:22 Temp 97.9 97.9 Pulse 104 104 98 Resp 18 20 B/P 127/67 124/67 142/49 Pulse Ox 92 O2 Delivery Room Air Room Air 09/12/16 09/12/16 09/12/16 09/12/16 12:32 15:17 17:33 19:00 Temp 96.8 98.5 96.8 98.5 Pulse 83 79 Resp 18 20 16 18 B/P 138/57 134/61 Pulse Ox 96 94 O2 Delivery Room Air Room Air Room Air Room Air 09/12/16 09/12/16 09/12/16 09/12/16 20:05 21:08 21:08 22:37 Pulse 79 87 Resp 20 B/P 134/61 121/94 Pulse Ox 93 O2 Delivery Room Air Room Air Room Air 09/13/16 09/13/16 09/13/16 09/13/16 03:19 07:00 07:39 08:11 Temp 97.7 98.5 97.7 98.5 Pulse 120 86 120 Resp 20 18 B/P 138/57 123/42 138/57 Pulse Ox 92 94 O2 Delivery Room Air Room Air Room Air O2 Flow Rate 2.0 09/13/16 09/13/16 09/13/16 08:11 08:12 09:12 Pulse 120 Resp 20 20 B/P 138/57 Pulse Ox 92 92 O2 Delivery Room Air Room Air O2 Flow Rate 2.0 2.0 Intake and Output 09/12/16 09/12/16 09/13/16 15:00 23:00 07:00 Intake Total 540 ml Balance 540 ml ANH FERREIRA MD Sep 13, 2016 10:04
[2016-09-13 10:05] VITALS: BP 134/67
[2016-09-13] MEDS ORDERED: TIZA4TAB PO (10:07)
[2016-09-13 15:39] VITALS: BP 141/111
--- NOTE | 2016-09-13 23:01 | CONS ---
DATE OF CONSULTATION: 09/12/2016 ATTENDING PHYSICIAN: Dr. Ponce. The patient was seen at the request of Dr. Ponce for rehab evaluation. HISTORY OF PRESENT ILLNESS: This is a 76-year-old female patient lives with her family, usually gets up and walks using a cane and mostly sits in a chair. She does not do that much physical activity. She was started on home health therapy. Therapist first came to see her and did some exercises with her on 09/09/2016 and she started having neck pain with radiation to her left shoulder area starting on 09/10/2016 and she was admitted through the Emergency Room with left-sided neck pain. The patient has been taking hydrocodone without much help. Patient with known asthmatic bronchitis, congestive heart failure, chronic obstructive pulmonary disease, diabetes mellitus type 2, gastroesophageal reflux disease, hypertension, chronic renal failure, obesity, status post cholecystectomy, hysterectomy, left rotator cuff repair, eye surgery. She is known allergic to iodinated contrast media, lisinopril. Patient had no steps for her to manage at home. She had a cane and walker at home. The patient admits some lower back and hip and knee pain. She denies any tingling or numbness sensation in the extremities. PHYSICAL EXAMINATION: Today revealed an elderly female. She is alert, oriented to time, place, person and circumstance and follows commands appropriately, moves all 4 extremities voluntarily where she had 4/5 grade muscle strength with relatively increased weakness in left shoulder, external rotators and ulnar hand intrinsic muscles bilaterally. Deep tendon reflexes are absent in both upper and lower extremities. She had equal perception of touch and pinprick sensation bilaterally. She had positive Tinel's sign over median nerve at the wrist and negative Tinel sign over ulnar nerve at the wrist and elbow. She had muscle atrophy involving ulnar hand intrinsic muscles in both hands. She had crepitus on range of motion of both shoulders and knees with some knee joint effusion and pain on range of motion of left knee. She had tenderness to palpation over cervical paraspinal muscles over sacroiliac joint area trochanteric bursa bilaterally. Straight leg raising test is negative bilaterally. The patient is independent with bed mobility and transfers and she walked at bedside with somewhat antalgic and wide-based gait using a roller walker. She gets tired easily. Her skin is intact other than some redness of the skin over lower part of the legs with associated edema of her feet and legs, probably from chronic venous insufficiency. ASSESSMENT: 1. Mobility and self-care limitation in a patient with sudden onset of cervical sprain in a patient with significant stiffness of her neck from degenerative disk disease and degenerative joint disease of cervical vertebrae without any clinical evidence of cervical radiculopathy. 2. Old rotator cuff repair, left shoulder with associated relative weakness of left shoulder girdle muscles. Clinical evidence of peripheral neuropathy. To also rule out associated bilateral carpal tunnel syndrome, degenerative joint disease of both knees with pain, left knee, chronic lower back pain from degenerative disk disease and degenerative joint disease of lumbar vertebrae with associated bilateral trochanteric bursitis, chronic venous insufficiency with dependent edema of her feet and legs, chronic urinary incontinence. RECOMMENDATIONS: As the patient is so scared about having MRI scan of her neck and refusing to get CT scan of the neck and lower back and also x-rays of her pelvis and knees, agree with the plan for physical therapy and occupational therapy. Hopefully, home with home health or outpatient therapy followup and if she agrees to alf care unit transfer for continued care. Dr. Ponce, I appreciate asking me to participate in care of this interesting patient. I will be glad to follow her with you as needed for her rehabilitation. NEREIDA NG MD DR: JOEY/wes JOB#: [id number] / [id number]
== END 2016-09-13 17:48 | disposition home or self-care (01) | DRG 683 ==
LOC: ER 13:58 → 5 SOUTH 18:30
PROVIDERS: ADMIT Internal Medicine; ATTEND Internal Medicine
DX: N17.9 Acute kidney failure, unspecified (principal); I50.32 Chronic diastolic (congestive) heart failure; I13.0 Hypertensive heart and chronic kidney disease with heart failure and stage 1 through stage 4 chronic kidney disease, or unspecified chronic kidney disease; Z68.43 Body mass index [BMI] 50.0-59.9, adult; E44.1 Mild protein-calorie malnutrition; M54.2 Cervicalgia; E11.22 Type 2 diabetes mellitus with diabetic chronic kidney disease; E66.01 Morbid (severe) obesity due to excess calories; E78.5 Hyperlipidemia, unspecified; G47.33 Obstructive sleep apnea (adult) (pediatric); G56.03 Carpal tunnel syndrome, bilateral upper limbs; E11.42 Type 2 diabetes mellitus with diabetic polyneuropathy; J44.9 Chronic obstructive pulmonary disease, unspecified; J45.909 Unspecified asthma, uncomplicated; K21.9 Gastro-esophageal reflux disease without esophagitis; M47.812 Spondylosis without myelopathy or radiculopathy, cervical region; N18.3 Chronic kidney disease, stage 3 (moderate); Z79.4 Long term (current) use of insulin; Z82.49 Family history of ischemic heart disease and other diseases of the circulatory system; Z90.49 Acquired absence of other specified parts of digestive tract; Z83.3 Family history of diabetes mellitus; Z90.710 Acquired absence of both cervix and uterus; Z88.8 Allergy status to other drugs, medicaments and biological substances; Z91.041 Radiographic dye allergy status; Z79.82 Long term (current) use of aspirin; Z79.899 Other long term (current) drug therapy; Z87.891 Personal history of nicotine dependence
CPT/HCPCS: 36415; 70450; 71010; 72040; 72100; 73502; 73565; 80048; 80053; 81001; 82947; 83735; 85027; 87086; 87641; 90686; 93005; 96361; 96374; 96375; J1815; J2405; J3010; J7030; J7042; 99285-25

== ENCOUNTER 2017-06-25 10:18 | Emergency (ER) | payer MEDICAID, MEDICARE ==
[~2017-06-25] VITALS: Ht 152.4 cm; Wt 126.6 kg
[~2017-06-25 10:18] MED LIST changes: +ASPI-612 PO; +ASPI-630 PO; -ASPI81TA2 PO; -ASPI81TA9 PO; -ERGO500012 PO; +ERGO500027 PO; +OXYC5CAP PO; -OXYC5CAP3 PO; -POTA10CA PO; +POTASSIUM CHLO10 MEQ PO; -SOLI5TAB PO; +SOLI5TAB2 PO; +TIZA4TAB PO
[2017-06-25] MEDS ORDERED: IV NORMAL SALINE 1000ML BAG 1,000 ML IV SCH (10:44)
--- NOTE | 2017-06-25 10:47 | EKG ---
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
[2017-06-25 10:54] LABS: BASO # 0.1 x10^3/uL (0.0-0.2); BASO % 1 % (0-3); EOS % 3 % (0-3); HEMATOCRIT 37.3 % (36.0-47.0); LYMPH # 1.9 x10^3/uL (1.0-4.8); LYMPH % 28 % (24-48); MEAN CORPUSCULAR HEMOGLOBIN 30 pg (25-35); MEAN CORPUSCULAR HGB CONC 32 g/dL (31-37); MEAN CORPUSCULAR VOLUME 94 fL (79-100); MONO % 8 % (0-9); NEUT % 60 % (31-73); PLATELET COUNT 190 x10^3/uL (140-400); RED BLOOD COUNT 3.97 x10^6/uL (3.50-5.40); RED CELL DISTRIBUTION WIDTH 15.3 % (11.5-14.5); WHITE BLOOD COUNT 6.7 x10^3/uL (4.0-11.0)
--- NOTE | 2017-06-25 11:06 | RAD ---
Indication: Shortness of air. Time of exam 10:53 AM Correlation is made with prior chest from 09/11/2016. FINDINGS: The heart size is normal. The lungs are clear. No pleural effusion or pneumothorax is identified. The pulmonary vascularity is normal. IMPRESSION: No acute abnormality detected.
[2017-06-25 11:48] LABS: CALCIUM 10.8 mg/dL (8.5-10.1); CREATININE 2.7 mg/dL (0.6-1.0); GFR 20.6
[2017-06-25 11:53] LABS: ALBUMIN 2.9 g/dL (3.4-5.0); ALBUMIN/GLOBULIN RATIO 0.7 (1.0-1.7); TOTAL BILIRUBIN 0.4 mg/dL (0.2-1.0)
[2017-06-25 12:00] LABS: BILIRUBIN,URINE NEGATIVE (NEG); GLUCOSE,URINE NEGATIVE (NEG); NITRITE,URINE NEGATIVE (NEG); PROTEIN,URINE NEGATIVE (NEG-TRACE); UROBILINOGEN,URINE 0.2 mg/dL (0.2 mg/dL)
[2017-06-25 12:10] LABS: YEAST,URINE PRESENT /HPF
[2017-06-25 12:11] LABS: BACTERIA,URINE MOD /HPF (0-FEW)
[2017-06-25 14:23] VITALS: BP 158/71
[2017-06-25] MEDS ORDERED: CEPH-264 PO (14:29)
--- NOTE | 2017-06-25 14:30 | PHYS DOC ---
Past Medical History Past Medical History: Asthma, CHF, COPD, Diabetes-Type II, GERD, Hypertension, Other Additional Past Medical Histor: RENAL FAILURE, obesity Past Surgical History: Cholecystectomy, Hysterectomy, Other Additional Past Surgical Histo: EYE,Left rotator cuff Alcohol Use: None Drug Use: None Adult General Chief Complaint Chief Complaint: FATIGUE HPI HPI Patient is a 77 year old [f__sex] who presents with [] Review of Systems Review of Systems Constitutional: Denies fever or chills [] Eyes: Denies change in visual acuity, redness, or eye pain [] HENT: Denies nasal congestion or sore throat [] Respiratory: Denies cough or shortness of breath [] Cardiovascular: No additional information not addressed in HPI [] GI: Denies abdominal pain, nausea, vomiting, bloody stools or diarrhea [] : Denies dysuria or hematuria [] Musculoskeletal: Denies back pain or joint pain [] Integument: Denies rash or skin lesions [] Neurologic: Denies headache, focal weakness or sensory changes [] Endocrine: Denies polyuria or polydipsia [] All other systems were reviewed and found to be within normal limits, except as documented in this note. Current Medications Current Medications Current Medications Medications (Trade) Dose Ordered Sig/Milli Start Time Stop Time Status Last Admin Dose Admin Ceftriaxone Sodium 1 gm/ Dextrose 50 ml @ 0 mls/hr 1X STAT 06/25/17 12:42 06/25/17 12:43 UNV Ceftriaxone Sodium 50 ml @ 100 mls/hr 1X ONCE 06/25/17 13:00 06/25/17 13:29 DC 06/25/17 13:27 100 MLS/HR Sodium Chloride 1,000 ml @ 999 mls/hr Q1H1M 06/25/17 10:44 06/25/17 11:08 999 MLS/HR Allergies Allergies Allergies Coded Allergies Type Severity Reaction Last Updated Verified Iodinated Contrast Media - Oral and Allergy Severe 08/28/16 Yes lisinopril Allergy Severe lip and throat swelling 08/28/16 Yes Physical Exam Physical Exam Constitutional: Well developed, well nourished, no acute distress, non-toxic appearance. [] HENT: Normocephalic, atraumatic, bilateral external ears normal, oropharynx moist, no oral exudates, nose normal. [] Eyes: PERRLA, EOMI, conjunctiva normal, no discharge. [] Neck: Normal range of motion, no tenderness, supple, no stridor. [] Cardiovascular:Heart rate regular rhythm, no murmur [] Lungs & Thorax: Bilateral breath sounds clear to auscultation [] Abdomen: Bowel sounds normal, soft, no tenderness, no masses, no pulsatile masses. [] Skin: Warm, dry, no erythema, no rash. [] Back: No tenderness, no CVA tenderness. [] Extremities: No tenderness, no cyanosis, no clubbing, ROM intact, no edema. [] Neurologic: Alert and oriented X 3, normal motor function, normal sensory function, no focal deficits noted. [] Psychologic: Affect normal, judgement normal, mood normal. [] Current Patient Data Vital Signs Vital Signs Date Time Temp Pulse Resp B/P (MAP) Pulse Ox O2 Delivery O2 Flow Rate FiO2 06/25/17 11:53 72 16 140/74 (96) 96 Room Air 06/25/17 11:22 97.8 97.8 Lab Values Laboratory Tests Test 06/25/17 10:13 06/25/17 10:25 06/25/17 11:25 Urine Collection Type U cath Urine Color Yellow Urine Clarity Clear Urine pH 6.0 Urine Specific [place] 1.010 Urine Protein Negative mg/dL (NEG-TRACE) Urine Glucose (UA) Negative mg/dL (NEG) Urine Ketones (Stick) Negative mg/dL (NEG) Urine Blood Moderate (NEG) Urine Nitrite Negative (NEG) Urine Bilirubin Negative (NEG) Urine Urobilinogen Dipstick 0.2 mg/dL (0.2 mg/dL) Urine Leukocyte Esterase Trace (NEG) Urine RBC 11-20 /HPF (0-2) Urine WBC 5-10 /HPF (0-4) Urine Bacteria Mod /HPF (0-FEW) Urine Hyaline Casts Occasional /HPF Urine Yeast Present /HPF White Blood Count 6.7 x10^3/uL (4.0-11.0) Red Blood Count 3.97 x10^6/uL (3.50-5.40) Hemoglobin 12.0 g/dL (12.0-15.5) Hematocrit 37.3 % (36.0-47.0) Mean Corpuscular Volume 94 fL (79-100) Mean Corpuscular Hemoglobin 30 pg (25-35) Mean Corpuscular Hemoglobin Concent 32 g/dL (31-37) Red Cell Distribution Width 15.3 % (11.5-14.5) H Platelet Count 190 x10^3/uL (140-400) Neutrophils (%) (Auto) 60 % (31-73) Lymphocytes (%) (Auto) 28 % (24-48) Monocytes (%) (Auto) 8 % (0-9) Eosinophils (%) (Auto) 3 % (0-3) Basophils (%) (Auto) 1 % (0-3) Neutrophils # (Auto) 4.0 x10^3uL (1.8-7.7) Lymphocytes # (Auto) 1.9 x10^3/uL (1.0-4.8) Monocytes # (Auto) 0.5 x10^3/uL (0.0-1.1) Eosinophils # (Auto) 0.2 x10^3/uL (0.0-0.7) Basophils # (Auto) 0.1 x10^3/uL (0.0-0.2) Sodium Level 138 mmol/L (136-145) Potassium Level 5.0 mmol/L (3.5-5.1) Chloride Level 105 mmol/L (98-107) Carbon Dioxide Level 27 mmol/L (21-32) Anion Gap 6 (6-14) Blood Urea Nitrogen 33 mg/dL (7-20) H Creatinine 2.7 mg/dL (0.6-1.0) H Estimated GFR (Cockcroft-Gault) 20.6 BUN/Creatinine Ratio 12 (6-20) Glucose Level 195 mg/dL (70-99) H Calcium Level 10.8 mg/dL (8.5-10.1) H Total Bilirubin 0.4 mg/dL (0.2-1.0) Aspartate Amino Transferase (AST) 24 U/L (15-37) Alanine Aminotransferase (ALT) 25 U/L (14-59) Alkaline Phosphatase 68 U/L (46-116) Troponin I Quantitative < 0.017 ng/mL (0.000-0.055) Total Protein 7.0 g/dL (6.4-8.2) Albumin 2.9 g/dL (3.4-5.0) L Albumin/Globulin Ratio 0.7 (1.0-1.7) L Thyroid Stimulating Hormone (TSH) 2.590 uIU/mL (0.358-3.74) Laboratory Tests 06/25/17 10:25 Laboratory Tests 06/25/17 11:25 EKG EKG [] Radiology/Procedures Radiology/Procedures [] Course & Med Decision Making Course & Med Decision Making Pertinent Labs and Imaging studies reviewed. (See chart for details) [] Dragon Disclaimer Dragon Disclaimer This electronic medical record was generated, in whole or in part, using a voice recognition dictation system. Departure Departure Impression: Primary Impression: UTI (lower urinary tract infection) Disposition: HOME, SELF-CARE Admitting Physician: Anh Ponce Referrals: ANH PONCE MD (PCP) Patient Instructions: Urinary Tract Infection Additional Instructions: You have a urinary tract infection. Finish Keflex as prescribed. Follow-up with your doctor tomorrow for reevaluation and to discuss the urine culture results for further guidance of your antibiotic therapy with modification if indicated by culture results. Return immediately for new severe or worsening symptoms. Scripts Cephalexin (KEFLEX) 500 Mg Capsule 1 CAP PO QID, #40 CAP Prov: APOORVA GARCIA MD 06/25/17 APOORVA GARCIA MD Jun 25, 2017 14:29
== END 2017-06-25 15:48 | disposition home or self-care (01) ==
LOC: ER 10:18
DX: N39.0 Urinary tract infection, site not specified (principal); K21.9 Gastro-esophageal reflux disease without esophagitis; E11.9 Type 2 diabetes mellitus without complications; J44.9 Chronic obstructive pulmonary disease, unspecified; I13.0 Hypertensive heart and chronic kidney disease with heart failure and stage 1 through stage 4 chronic kidney disease, or unspecified chronic kidney disease; E11.22 Type 2 diabetes mellitus with diabetic chronic kidney disease; N18.9 Chronic kidney disease, unspecified; E66.9 Obesity, unspecified; Z68.43 Body mass index [BMI] 50.0-59.9, adult; Z88.8 Allergy status to other drugs, medicaments and biological substances; Z91.041 Radiographic dye allergy status
CPT/HCPCS: 36415; 71010; 80053; 81001; 84443; 84484; 85025; 87086; 93005; 96361; 96365; 99285; J0690; J7030